=== PATIENT | male | born 1960 | race Caucasian/White ===

== ENCOUNTER 2016-11-26 10:39 | Inpatient (IN) | payer MEDICAID, OTHER | END 2016-11-27 14:36 | disposition left against medical advice (07) | DRG 848 | LOC: PREOBSVTOIN 13:22 → F1N 11-27 13:27 | PROVIDERS: ADMIT Internal Medicine Hematology & Oncology; ATTEND Internal Medicine Hematology & Oncology | DX: Z51.11 Encounter for antineoplastic chemotherapy (principal) ==

== ENCOUNTER 2016-11-27 14:49 | Inpatient (IN) | payer MEDICAID, OTHER ==
[2016-11-27] MEDS ORDERED: ONDANSETRON DISINTEGRATING 4 MG TAB PO PRN (18:24)
[2016-11-27] MEDS ORDERED: HYDROmorphONE/DILAUDID 1 MG/ML INJ IVP PRN (18:24)
[2016-11-27] MEDS ORDERED: ONDANSETRON 4 MG/2 ML VIAL IVP PRN (18:24)
[2016-11-27] MEDS ORDERED: ACETAMINOPHEN 325 MG TAB PO PRN (18:24)
[2016-11-27] MEDS ORDERED: VODKA 50 ML BOTTLE PO SCH (18:30)
--- NOTE | 2016-11-27 19:05 | PDGENHP ---
History and Physical - Chief Complaint here for chemo - History of Present Illness 56 yo male with h/o metastatic anal cancer presents to hospital for direct admission for chemotherapy. He initially noticed a right groin lump in 04/2016. At that time he was incarcerated. He ultimately underwent biopsy of this node , which showed squamous cell carcinoma possibly consistent with anal cancer origin. At PET/CT done at [facility] showed increased uptake along the right wall of the anus as well as the right inguinal lymph region. He is admitted for PICC line placement and initiation of chemotherapy. He denies CP, SOB, abdominal pain, N/V or diarrhea. No fevers or chills. He drinks a pint of whiskey a day , but denies any h/o withdrawal syndrome or seizures. He appears substance affected during my interview. He initially presented to the med surg unit earlier today, then left AMA for 3-4 hrs and just returned. He now agrees to stay for the duration of his chemo course. He is emotional regarding his diagnosis. History Information - Allergies/Home Medication List Allergies/Adverse Reactions: Penicillins Allergy (Intermediate, Verified 12/04/15 23:24) Rash Home Medications: Lidocaine 5% [Lidoderm 5% Patch (*)] 1 ea TD DAILY 09/15/14 [Last Taken 11/27/16 ] Terazosin HCl [Hytrin 2 MG (*)] 2 mg PO HS 09/15/14 [Last Taken 11/26/16] traMADol [Ultram 50 mg (*)] 50 - 100 mg PO Q8 PRN 09/15/14 [Last Taken Unknown] traZODone [traZODONE 100MG (*)] 200 mg PO HS 09/15/14 [Last Taken 11/26/16] Baclofen [Baclofen 10 mg (*)] 10 mg PO HS 11/27/16 [Last Taken 11/26/16] Fluticasone Nasal [Flonase Nasal [place] (RX)] 2 sprays NASAL DAILY 11/27/16 [ Last Taken 11/27/16] Gabapentin [Neurontin 400 MG (*)] 800 mg PO TID 11/27/16 [Last Taken 11/27/16] Ibuprofen [Motrin (*)] 600 mg PO TIDMEAL 11/27/16 [Last Taken 11/27/16] Losartan Potassium [Cozaar 50 mg (*)] 50 mg PO DAILY 10/23/17 [Last Taken ] Omeprazole [Prilosec 20 mg] 40 mg PO DAILY 11/27/16 [Last Taken 11/27/16] oxyCODONE IR [Oxycodone Ir (*)] 5 mg PO BID PRN 11/27/16 [Last Taken Unknown] I have personally reviewed and updated: family history, medical history, social history, surgical history - Past Medical History Additional medical history: alcohol abuse, tobacco abuse, hypertension, neuropathy, traumatic ICH 2008, insomnia - Surgical History Additional surgical history: right shoulder surgery 1985. metal plate right finger - Family History Positive for: non-pertinent - Social History Smoking Status: Current every day smoker Tobacco Use: Greater than 1 pack/day Alcohol Use: Heavy Additional social history: Homeless. Drinks pint of [employer] a day. Denies w/d or seizure hx. Review of Systems Review of Systems: ROS: 10pt was reviewed & negative except for what was stated in HPI & below Physical Exam Physical Exam: Temp Pulse Resp BP Pulse Ox 36.4 C 104 H 20 130/81 H 94 11/27/16 18:47 11/27/16 18:47 11/27/16 18:47 11/27/16 18:47 11/27/16 18:47 Constitutional: no apparent distress Eyes: PERRL Ears, Nose, Mouth, Throat: moist mucous membranes Cardiovascular: regular rate and rhythym, no murmur, rub, or gallop Respiratory: no respiratory distress, clear to auscultation Gastrointestinal: normoactive bowel sounds, soft, non-tender abdomen Genitourinary: other (right groin LAD with palpable node ~2x3 cm) Skin: warm Musculoskeletal: full muscle strength Psychiatric: poor judgement Lab Data & Imaging Review 11/27/16 20:30 11/27/16 20:30 Assessment & Plan Assessment: 56 yo male admitted for chemo Metastatic anal cancer - SCC on biopsy of right groin node, suspected source is anal thickening seen on PET/CT. Plan is admitted for chemo, followed by Dr. Louis at [facility]. Discussed with pt reluctance to place a PICC given he already left AMA once today. He agrees to stay for duration of chemo course, but I note he appears substance affected at this time. -defer PICC until tomorrow AM, need to consent pt to this when his mentation is more clear -chemo per oncology Alcohol use disorder - po vodka ordered to avoid withdrawal syndrome in this patient who does not intend to maintain sobriety. Tobacco use disorder - pt declined nicoderm patch Full code DVT PPLX - Lovenox Dispo - inpt, will require >48 hrs hospitalization for chemo
[2016-11-27 21:03] LABS: INR 1.02 (0.83-1.16); PROTIME(PATIENT) 13.3 SEC (12.0-15.0)
[2016-11-27 21:12] LABS: ALANINE AMINOTRANSFERASE 88 IU/L (21-72); ALBUMIN 4.2 g/dL (3.5-5.0); ALKALINE PHOSPHATASE 62 IU/L (38-126); ANION GAP 13 mEq/L (8-16); ASPARTATE AMINOTRANSFERASE 88 IU/L (17-59); BILIRUBIN,TOTAL 0.5 mg/dL (0.1-1.4); CALCIUM 8.7 mg/dL (8.5-10.4); CARBON DIOXIDE 26 mEq/l (22-31); CHLORIDE 102 mEq/L (97-110); CREATININE 0.9 mg/dL (0.7-1.3); ETHANOL SERUM 278 mg/dL (0-10); GLOMERULAR FILTRATION RATE > 60; GLUCOSE 106 mg/dL (70-100); POTASSIUM 3.3 mEq/L (3.5-5.2); SODIUM 141 mEq/L (134-144); TOTAL PROTEIN 7.1 g/dL (6.3-8.2)
[2016-11-27] MEDS ORDERED: POTASSIUM CL 20 MEQ TAB PO ONE (23:28)
[2016-11-28 01:29] LABS: TETRAHYDROCANNABINOL URINE 8 ng/mL (NEGATIVE); TETRAHYDROCANNABINOL URINE NEGATIVE (NEGATIVE)
[2016-11-28 01:44] LABS: PHENCYCLIDINE URINE BCH < 6 ng/ml (NEGATIVE); PHENCYCLIDINE URINE BCH NEGATIVE (NEGATIVE)
[2016-11-28] MEDS ORDERED: POTASSIUM CL 20 MEQ TAB PO ONE (03:15)
[2016-11-28 05:09] LABS: % IMMATURE GRANULYOCYTES 0.2 % (0.0-1.1); ABSOLUTE IMMATURE GRANULOCYTES 0.01 10^3/uL (0.00-0.10); ADD DIFF? NO; ADD MORPH? NO; ADD SCAN? NO; ATYPICAL LYMPHOCYTE FLAG 30 (0-99); FRAGMENT RBC FLAG 0 (0-99); HEMATOCRIT 40.5 % (40.0-51.0); HEMOGLOBIN 14.4 g/dL (13.7-17.5); LEFT SHIFT FLG 0 (0-99); LIPEMIA HEMOLYSIS FLAG 90 (0-99); MEAN CELL HEMOGLOBIN 35.5 pg (27.9-34.1); MEAN CELL HEMOGLOBIN CONCENTR. 35.6 g/dL (32.4-36.7); MEAN CELL VOLUME 99.8 fL (81.5-99.8); MEAN PLATELET VOLUME 9.6 fL (8.7-11.7); PLATELET CLUMPS FLAG 20 (0-99); PLATELET COUNT 128 10^3/uL (150-400); RED BLOOD CELL COUNT 4.06 10^6/uL (4.40-6.38); RED CELL DISTRIBUTION WIDTH 13.2 % (11.5-15.2)
[2016-11-28] MEDS ORDERED: ALTEPLASE 2 MG VIAL IVP PRN (08:25)
[2016-11-28] MEDS: FLUTICASONE NASAL 120 SPRAYS/16 GM MDI NS SCH (08:32)
--- NOTE | 2016-11-28 08:35 | HOSPPROG ---
Hospitalist Progress Note Assessment/Plan: # anal SCC - plan mitomycin, then 4 days of 5-FU - XRT daily - patient very resistant to taking an ambulance; I called risk management - PICC today # etOH abuse - vodka daily, no plans for cessation - thiamine # tobacco use - declined nicotine patch # htn - losartan, terazosin # neuropathy - gabapentin # chronic pain - baclofen, oxy # hx traumatic ICH 2009 # lovenox Subjective: very resistant to taking an ambulance to radiation; sleeping, complains of awakening in the middle of the night Objective: Vital Signs Temp Pulse Resp BP Pulse Ox 36.8 C 92 16 131/84 H 95 11/27/16 20:00 11/27/16 20:00 11/27/16 20:00 11/27/16 20:00 11/27/16 20:00 Laboratory Results 11/28/16 04:45 11/27/16 20:30 11/27/16 11/28/16 11/29/16 05:59 05:59 05:59 Intake Total 400 Output Total 400 Balance 0 PT 13.3 SEC (12.0-15.0) 11/27/16 20:30 INR 1.02 (0.83-1.16) 11/27/16 20:[address] reviewed - Physical Exam Constitutional: unkempt Cardiovascular: regular rate and rhythym, no murmur, rub, or gallop Respiratory: no respiratory distress, no rales or rhonchi, clear to auscultation Gastrointestinal: normoactive bowel sounds, soft, non-tender abdomen, no palpable masses ICD10 Worksheet Patient Problems: Problems Problem Status Onset Cellulitis and abscess Acute
[2016-11-28] MEDS ORDERED: GABAPENTIN 400 MG CAP PO SCH (09:00)
[2016-11-28] MEDS ORDERED: LIDOCAINE 5% 1 EA PATCH TD SCH (09:00)
[2016-11-28] MEDS ORDERED: LOSARTAN POTASSIUM 50 MG TAB PO SCH (09:00)
[2016-11-28] MEDS ORDERED: ENOXAPARIN 40 MG/0.4 ML SYR SC SCH (09:00)
[2016-11-28] MEDS ORDERED: PANTOPRAZOLE SODIUM 40 MG TAB PO SCH (09:00)
[2016-11-28] MEDS: oxyCODONE IR 5 MG TAB PO PRN (09:36)
[2016-11-28] MEDS: THIAMINE HCL 100 MG TAB PO SCH (09:36)
[2016-11-28] MEDS: traMADol 50 MG TAB PO PRN ×2 (09:38→18:02)
[2016-11-28] MEDS: BACLOFEN 10 MG TAB PO PRN (09:39)
--- NOTE | 2016-11-28 10:08 | ASMTCMCOM ---
CM Note CM Note Notes: Patient twice admitted yesterday after deciding to leave shortly after admission. Patient here for chemo and radiation for rectal cancer. Patient to get PICC today. Left message for Qiana Saavedra to see patient to establish a base line of behavior or necessary boundaries. Patient is refusing nicotine patch and also states he plans to continue drinking. Case management will continue to follow. Date Signed: 11/28/2016 10:07 AM Electronically Signed By:NITZA Pedersen
[2016-11-28] MEDS: GABAPENTIN 400 MG CAP PO SCH ×2 (12:00→21:09)
[2016-11-28] MEDS: LOSARTAN POTASSIUM 50 MG TAB PO SCH (12:02)
[2016-11-28] MEDS ORDERED: LORazepam 1 MG TAB PO PRN (14:50)
[2016-11-28] MEDS ORDERED: NICOTINE 21 MG/24 HR PATCH TD PRN (14:50)
--- NOTE | 2016-11-28 15:27 | GCON ---
[f rep st] CONSULTATION ONCOLOGY CONSULTATION DATE OF CONSULTATION: 11/28/2016 REASON FOR CONSULTATION: Anal squamous cell carcinoma. HISTORY OF PRESENT ILLNESS: The patient is a 56-year-old gentleman who is followed by my partner, Dr Sam Louis. The patient reports noting a "lump" in his right groin in August of this year. The patient is homeless and was briefly incarcerated and, thus, had significant barriers to receiving [facility] and treatment. He was eventually evaluated. A biopsy revealed anal squamous cell carcinom a. A subsequent endoscopy confirmed squamous cell carcinoma in the anal canal. A PET scan showed no evidence of metastatic disease. The patient has been admitted for his first cycle of mitomycin 5-FU , which is being given concurrently with external beam radiation therapy. He received his first radi ation treatment yesterday. He denies any anorectal pain. He denies chest pain, cough, or exertional dyspnea. He denies abdomin al pain or bloating. His medical history is notable for alcohol abuse. He is admitted to begin chemotherapy. He is sched uled to have a PICC line placed later today and hopefully to begin his mitomycin 5-FU this evening. PAST MEDICAL HISTORY: 1. Alcohol abuse. 2. Hypertension. 3. Peripheral neuropathy. 4. Traumatic intracerebral hemorrhage, 2008. 5. Chronic insomnia. PAST SURGICAL HISTORY: Right shoulder surgery, 1985. FAMILY HISTORY: The patient reports his older brother recently of metastatic prostate cancer. He has a brother who had a possible head and neck cancer. A sister had early stage uterine cancer. SOCIAL HISTORY: The patient is homeless. He resides in [facility]. He is not working. He drin ks approximately 1 pint of [place] whiskey a day. He smokes 12-13 cigarettes daily. He has family living in [place], [place] (siblings). REVIEW OF SYSTEMS: As outlined above. PHYSICAL EXAM: GENERAL: The patient is in no acute distress. HEENT: Pupils equal. Sclerae are no nicteric. Conjunctivae normal. No palpable submandibular, cervical, or supraclavicular adenopathy. HEART: Regular, without murmur. LUNGS: Clear bilaterally. No wheeze, no rhonchi. No crackles. No flank tenderness. ABDOMEN: Soft, nontender, nondistended. There is no hepatomegaly. LYMPHATIC: The patient does have a palpable 2-3 cm mobile node in the right inguinal region. No palpable left inguinal adenopathy. EXTREMITIES: No extremity swelling or edema. LABORATORY STUDIES: White count of 4.05, hemoglobin 14.4, platelet count 128,000. Absolute neutrophi l count is 1200. Sodium 141, potassium 3.3, chloride 102, bicarb 26, BUN 8, creatinine 0.8, total bi lirubin 0.5, AST 88, ALT 88, alkaline phosphatase 62, albumin 4.2. IMPRESSION: 1. Locally advanced anal squamous cell carcinoma (patient being admitted for his first cycle of zaina mycin 5-FU therapy). 2. Alcohol abuse. 3. Mild transaminitis, likely secondary to #2. The patient is a 56-year-old gentleman who is electively admitted for his first cycle of mitomycin 5- FU. He is scheduled to have a PICC line placed later today and will hopefully begin his mitomycin 5- FU this evening. I again reviewed the regimen. We discussed the intent of treatment. The patient h as a potentially curable malignancy. The side effect profile of mitomycin 5-FU was again reviewed wi th the patient, including the risk of neutropenic infection and chemotherapy-induced mucositis, nause a, vomiting, and diarrhea. He is willing to proceed with therapy. He will remain inpatient for at least 4 days to receive his treatment. The 5-FU will be given by con tinuous infusion. His LFTs will be monitored closely. I suspect the mild elevation is due to his ongoing alcohol abuse . He does not require a chemotherapy dose adjustment based on his liver function tests currently. Case Management is involved. His living situation presents a problem given that he is receiving last ow suppressive chemotherapy. Case Management is meeting with him to attempt to find a temporary hous ing situation for the patient. Our service will continue to follow him during his hospital stay. He will continue to receive daily radiation therapy. His questions were answered today. Total time for today's visit was approximately 45 minutes, of which greater than 50% was spent in cou nseling and care coordination. His case was discussed with 1 [facility] nursing staff. /[id number]/MODL
[2016-11-28] MEDS ORDERED: PALONOSETRON HCL 0.25 MG/5 ML VIAL IVP SCH (16:00)
[2016-11-28] MEDS ORDERED: DEXAMETHASONE SOD PHOSPHATE 10 MG in NS 50 ML IV SCH (16:00)
[2016-11-28] MEDS ORDERED: MITOMYCIN IV SCH (16:30)
[2016-11-28] MEDS ORDERED: FLUOROURACIL IV SCH (17:00)
[2016-11-28] MEDS ORDERED: D5W IV SCH (17:00)
[2016-11-28] MEDS: VODKA 50 ML BOTTLE PO SCH (18:04)
--- NOTE | 2016-11-28 18:05 | ASMTCMCOM ---
CM Note CM Note Notes: Requested that Merari Singh meet with patient because he was very concerned that he would not receive assistance with housing after his treatment though he had been told that this would be arranged. Merari spent a considerable amount to time with patient and patient appeared to trust her with some very personal information. He also referred to important people in his life Dora , his sister [phone], Brother Matthew [phone], and friend Joaquin [phone]. He also told Merari he woul be willing to get a nicotin patch while he is here and said he would take the vodka if it is in cranberry juice. Merari plans to continue to touch base with this patient and address needs not anticipated as they arise. Case management will continue to follow. Date Signed: 11/28/2016 06:04 PM Electronically Signed By:NITZA Pedersen
[2016-11-28] MEDS: traZODone 100 MG TAB PO SCH (21:08)
[2016-11-28] MEDS: LIDOCAINE 5% 1 EA PATCH TD SCH (21:08)
[2016-11-28] MEDS: PANTOPRAZOLE SODIUM 40 MG TAB PO SCH (21:08)
[2016-11-28] MEDS: TERAZOSIN HCL 2 MG CAP PO SCH (21:08)
[2016-11-28] MEDS: BACLOFEN 10 MG TAB PO SCH (21:09)
[2016-11-28] MEDS: PATCH REMOVAL 1 EA PATCH TD SCH (21:24)
[2016-11-29] MEDS: traMADol 50 MG TAB PO PRN ×2 (05:50→14:22)
[2016-11-29] MEDS: GABAPENTIN 400 MG CAP PO SCH ×3 (05:50→21:08)
[2016-11-29] MEDS: BACLOFEN 10 MG TAB PO PRN (05:52)
[2016-11-29] MEDS: VODKA 50 ML BOTTLE PO SCH (08:48)
[2016-11-29] MEDS: THIAMINE HCL 100 MG TAB PO SCH (08:48)
[2016-11-29] MEDS: oxyCODONE IR 5 MG TAB PO PRN (08:48)
[2016-11-29] MEDS: ENOXAPARIN 40 MG/0.4 ML SYR SC SCH (08:52)
--- NOTE | 2016-11-29 10:08 | HOSPPROG ---
Hospitalist Progress Note Assessment/Plan: # anal SCC - plan mitomycin, then 4 days of 5-FU - likely complete Sunday am - XRT daily - ok'd for him to take wheelchair - PICC today # etOH abuse - no evidence of w/d - vodka daily, no plans for cessation - ativan prn - thiamine # tobacco use - nicotine prn # htn - losartan, terazosin, start low dose norvasc # neuropathy - gabapentin # chronic pain - baclofen, oxy # hx traumatic ICH 2009 # lovenox Subjective: s/p PICC and XRT yesterday Objective: Vital Signs Temp Pulse Resp BP Pulse Ox 36.4 C 91 20 166/105 H 93 11/29/16 09:35 11/29/16 09:35 11/29/16 09:35 11/29/16 09:35 11/29/16 09:35 Laboratory Results 11/28/16 04:45 11/27/16 20:30 11/28/16 11/29/16 11/30/16 05:59 05:59 05:59 Intake Total 400 200 Output Total 400 Balance 0 200 PT 13.3 SEC (12.0-15.0) 11/27/16 20:30 INR 1.02 (0.83-1.16) 11/27/16 20:30 - Physical Exam Constitutional: no apparent distress, appears nourished Cardiovascular: regular rate and rhythym, no murmur, rub, or gallop, systolic murmur Respiratory: no respiratory distress, no rales or rhonchi, clear to auscultation Gastrointestinal: normoactive bowel sounds, soft, non-tender abdomen, no palpable masses ICD10 Worksheet Patient Problems: Problems Problem Status Onset Cellulitis and abscess Acute
[2016-11-29] MEDS: FLUTICASONE NASAL 120 SPRAYS/16 GM MDI NS SCH (10:17)
[2016-11-29] MEDS: PATCH REMOVAL 1 EA PATCH TD SCH (10:18)
[2016-11-29] MEDS: LOSARTAN POTASSIUM 50 MG TAB PO SCH (12:02)
--- NOTE | 2016-11-29 14:24 | SOAPPROG ---
SOAP Progress Note Assessment/Plan: Assessment: 1) Stage IIIB anal canal SCC 2) Alcohol abuse 3) Mild transaminitis Plan: Yinka had a PICC line placed yesterday. He is has started Mitomycin / 5-FU yesterday. So far he has had no side effects. He continues on daily XRT. Will repeat a CMP in am tomorrow. Case management arranging housing once he is discharged. His questions were answered. 11/29/16 14:21 Subjective: Feels well. Denies N/V. Denies diarrhea or mouth sores. Objective: Vital Signs Temp Pulse Resp BP Pulse Ox 36.4 C 107 H 14 136/104 H 93 11/29/16 09:35 11/29/16 12:01 11/29/16 12:01 11/29/16 12:01 11/29/16 12:01 Laboratory Results 11/28/16 04:45 11/27/16 20:30 11/28/16 11/29/16 11/30/16 05:59 05:59 05:59 Intake Total 400 200 Output Total 400 Balance 0 200 PT 13.3 SEC (12.0-15.0) 11/27/16 20:30 INR 1.02 (0.83-1.16) 11/27/16 20:30 - Time Spent With Patient Time Spent With Patient: 20 minutes Physical Exam - Physical Exam General Appearance: alert, no apparent distress EENT: PERRL/EOMI Skin: normal color Neuro/Psych: normal mood/affect ICD10 Worksheet Patient Problems: Problems Problem Status Onset Cellulitis and abscess Acute
--- NOTE | 2016-11-29 17:03 | ASMTCMCOM ---
CM Note CM Note Notes: ULTC-100 started, at front of chart. CM will finish in AM. Paty notified for LT M'Caid tylor to be atarted as pt may need SNF placement at [facility]. Date Signed: 11/29/2016 05:02 PM Electronically Signed By:Mary Ann Ortez RN
[2016-11-29] MEDS: PANTOPRAZOLE SODIUM 40 MG TAB PO SCH (21:07)
[2016-11-29] MEDS: LIDOCAINE 5% 1 EA PATCH TD SCH (21:07)
[2016-11-29] MEDS: TERAZOSIN HCL 2 MG CAP PO SCH (22:37)
[2016-11-29] MEDS: traZODone 100 MG TAB PO SCH (22:37)
[2016-11-29] MEDS: BACLOFEN 10 MG TAB PO SCH (22:37)
[2016-11-30] MEDS: FLUOROURACIL IV SCH
[2016-11-30] MEDS: D5W IV SCH
[2016-11-30] MEDS: traMADol 50 MG TAB PO PRN ×4 (00:21→21:32)
[2016-11-30] MEDS: GABAPENTIN 400 MG CAP PO SCH ×3 (05:37→21:31)
[2016-11-30] MEDS: VODKA 50 ML BOTTLE PO SCH (07:48)
[2016-11-30] MEDS: ENOXAPARIN 40 MG/0.4 ML SYR SC SCH (07:48)
[2016-11-30] MEDS: THIAMINE HCL 100 MG TAB PO SCH (07:48)
[2016-11-30] MEDS: FLUTICASONE NASAL 120 SPRAYS/16 GM MDI NS SCH (07:50)
[2016-11-30] MEDS: PATCH REMOVAL 1 EA PATCH TD SCH (07:53)
--- NOTE | 2016-11-30 08:51 | SOAPPROG ---
SOAP Progress Note Assessment/Plan: Assessment: 1) Stage IIIB anal canal SCC 2) Alcohol abuse 3) Mild transaminitis Plan: Yinka had a PICC line. He is has started Mitomycin / 5-FU on 11/28. So far he has had no side effects. He continues on daily XRT. Will repeat a CMP today when his 5-FU is stopped for him to go to XRT. No signs of ETOH withdrawal. He receives vodka as he is not interested in sobriety. Case management arranging housing once he is discharged. His questions were answered. 11/29/16 14:21 11/30/16 08:48 11/30/16 08:49 Subjective: Receiving chemotherapy and daily XRT. Denies nausea or diarrhea Objective: Vital Signs Temp Pulse Resp BP Pulse Ox 36.4 C 79 16 152/107 H 95 11/30/16 07:26 11/30/16 07:26 11/30/16 07:26 11/30/16 07:47 11/30/16 07:26 Laboratory Results 11/28/16 04:45 11/27/16 20:30 11/29/16 11/30/16 12/01/16 05:59 05:59 05:59 Intake Total 200 1832.90 Balance 200 1832.90 PT 13.3 SEC (12.0-15.0) 11/27/16 20:30 INR 1.02 (0.83-1.16) 11/27/16 20:30 - Time Spent With Patient Time Spent With Patient: 20 minutes Physical Exam - Physical Exam General Appearance: alert, no apparent distress EENT: PERRL/EOMI Respiratory: lungs clear Cardiac/Chest: regular rate, rhythm Abdomen: non-tender, soft Skin: normal color Neuro/Psych: alert ICD10 Worksheet Patient Problems: Problems Problem Status Onset Cellulitis and abscess Acute
[2016-11-30 09:59] LABS: % IMMATURE GRANULYOCYTES 0.2 % (0.0-1.1); ABSOLUTE IMMATURE GRANULOCYTES 0.01 10^3/uL (0.00-0.10); ADD DIFF? NO; ADD MORPH? NO; ADD SCAN? NO; ATYPICAL LYMPHOCYTE FLAG 0 (0-99); FRAGMENT RBC FLAG 0 (0-99); HEMATOCRIT 41.3 % (40.0-51.0); HEMOGLOBIN 14.6 g/dL (13.7-17.5); LEFT SHIFT FLG 0 (0-99); LIPEMIA HEMOLYSIS FLAG 90 (0-99); MEAN CELL HEMOGLOBIN 36.1 pg (27.9-34.1); MEAN CELL HEMOGLOBIN CONCENTR. 35.4 g/dL (32.4-36.7); MEAN CELL VOLUME 102.2 fL (81.5-99.8); MEAN PLATELET VOLUME 9.7 fL (8.7-11.7); PLATELET CLUMPS FLAG 10 (0-99); PLATELET COUNT 124 10^3/uL (150-400); RED BLOOD CELL COUNT 4.04 10^6/uL (4.40-6.38); RED CELL DISTRIBUTION WIDTH 12.8 % (11.5-15.2)
[2016-11-30 10:07] LABS: ALANINE AMINOTRANSFERASE 63 IU/L (21-72); ALBUMIN 3.9 g/dL (3.5-5.0); ALKALINE PHOSPHATASE 56 IU/L (38-126); ANION GAP 11 mEq/L (8-16); ASPARTATE AMINOTRANSFERASE 51 IU/L (17-59); BILIRUBIN,TOTAL 1.3 mg/dL (0.1-1.4); CALCIUM 9.1 mg/dL (8.5-10.4); CARBON DIOXIDE 29 mEq/l (22-31); CHLORIDE 101 mEq/L (97-110); CREATININE 0.8 mg/dL (0.7-1.3); GLOMERULAR FILTRATION RATE > 60; GLUCOSE 81 mg/dL (70-100); SODIUM 141 mEq/L (134-144); TOTAL PROTEIN 7.3 g/dL (6.3-8.2)
--- NOTE | 2016-11-30 12:02 | HOSPPROG ---
Hospitalist Progress Note Assessment/Plan: # anal SCC, admitted for chemo - plan mitomycin, then 4 days of 5-FU - likely complete Sunday am - XRT daily - ok'd for him to take wheelchair - PICC today # etOH abuse - no evidence of w/d - vodka daily, no plans for cessation - ativan prn - thiamine # behavioral issues - very resistant to following hospital protocols; makes his treatment difficult; had initially signed out AMA, then returned intoxicated # tobacco use - nicotine prn # htn - losartan, terazosin, start low dose norvasc # neuropathy - gabapentin # chronic pain - baclofen, oxy # hx traumatic ICH 2009 # lovenox Subjective: still resistant to following rules such as staying on the unit while he is getting chemo Objective: Vital Signs Temp Pulse Resp BP Pulse Ox 36.4 C 79 16 152/107 H 95 11/30/16 07:26 11/30/16 07:26 11/30/16 07:26 11/30/16 07:47 11/30/16 07:26 Laboratory Results 11/30/16 09:20 11/30/16 09:20 11/29/16 11/30/16 12/01/16 05:59 05:59 05:59 Intake Total 200 1832.90 Balance 200 1832.90 PT 13.3 SEC (12.0-15.0) 11/27/16 20:30 INR 1.02 (0.83-1.16) 11/27/16 20:30 - Time Spent With Patient Time Spent with Patient: greater than 25 minutes Time Spent with Patient: Greater than 25 minutes spent on this patients care, greater than 50% of time spent counseling, educating, and coordinating care regarding the above mentioned plan. - Physical Exam Constitutional: no apparent distress, appears nourished ICD10 Worksheet Patient Problems: Problems Problem Status Onset Cellulitis and abscess Acute
[2016-11-30] MEDS: LOSARTAN POTASSIUM 50 MG TAB PO SCH (12:27)
[2016-11-30] MEDS: BACLOFEN 10 MG TAB PO PRN (14:00)
--- NOTE | 2016-11-30 17:09 | ASMTCMCOM ---
CM Note CM Note Notes: Pt currently does not meet criteria for a LTC bed at a nursing facility. Dir James of case mgmt. approved pt staying at the [facility] for two weeks. This plan will be revisited near the end of those two weeks. Reservation for [facility] from 12/03 12/17. Reservation # is [phone]. Pt will also need W/C transport through [facility] set up. This will be covered by Medicaid. [employer] will be contacted tomorrow. Discussed plans with pt who is grateful. Went over rule about no smoking in room with pt. Discussed rule about limiting visitors and taking good care of the room but pt indicated he has no friends so doesnt think it will be an issue. Pt is due to complete his chemo on Sunday so DC tentatively planned for then. Date Signed: 11/30/2016 05:09 PM Electronically Signed By:Elena Marinelli LCSW
[2016-11-30] MEDS: LIDOCAINE 5% 1 EA PATCH TD SCH (21:31)
[2016-11-30] MEDS: TERAZOSIN HCL 2 MG CAP PO SCH (21:33)
[2016-11-30] MEDS: PANTOPRAZOLE SODIUM 40 MG TAB PO SCH (21:34)
[2016-11-30] MEDS: traZODone 100 MG TAB PO SCH (21:34)
[2016-11-30] MEDS: BACLOFEN 10 MG TAB PO SCH (21:35)
[2016-12-01] MEDS: FLUOROURACIL IV SCH (02:46)
[2016-12-01] MEDS: D5W IV SCH (02:46)
[2016-12-01 03:16] LABS: % IMMATURE GRANULYOCYTES 0.2 % (0.0-1.1); ABSOLUTE IMMATURE GRANULOCYTES 0.01 10^3/uL (0.00-0.10); ADD DIFF? NO; ADD MORPH? NO; ADD SCAN? NO; ATYPICAL LYMPHOCYTE FLAG 0 (0-99); FRAGMENT RBC FLAG 0 (0-99); HEMATOCRIT 39.9 % (40.0-51.0); HEMOGLOBIN 14.4 g/dL (13.7-17.5); LEFT SHIFT FLG 0 (0-99); LIPEMIA HEMOLYSIS FLAG 90 (0-99); MEAN CELL HEMOGLOBIN 36.9 pg (27.9-34.1); MEAN CELL HEMOGLOBIN CONCENTR. 36.1 g/dL (32.4-36.7); MEAN CELL VOLUME 102.3 fL (81.5-99.8); MEAN PLATELET VOLUME 9.2 fL (8.7-11.7); PLATELET CLUMPS FLAG 0 (0-99); PLATELET COUNT 122 10^3/uL (150-400); RED CELL DISTRIBUTION WIDTH 12.9 % (11.5-15.2)
[2016-12-01 03:24] LABS: ALANINE AMINOTRANSFERASE 58 IU/L (21-72); ALKALINE PHOSPHATASE 55 IU/L (38-126); ANION GAP 13 mEq/L (8-16); ASPARTATE AMINOTRANSFERASE 50 IU/L (17-59); BILIRUBIN,TOTAL 1.3 mg/dL (0.1-1.4); CARBON DIOXIDE 26 mEq/l (22-31); CHLORIDE 100 mEq/L (97-110); CREATININE 0.8 mg/dL (0.7-1.3); GLOMERULAR FILTRATION RATE > 60; GLUCOSE 99 mg/dL (70-100); POTASSIUM 3.6 mEq/L (3.5-5.2); SODIUM 139 mEq/L (134-144); TOTAL PROTEIN 6.8 g/dL (6.3-8.2)
[2016-12-01] MEDS: traMADol 50 MG TAB PO PRN ×3 (05:05→22:06)
[2016-12-01] MEDS: GABAPENTIN 400 MG CAP PO SCH ×3 (05:06→21:17)
[2016-12-01] MEDS: oxyCODONE IR 5 MG TAB PO PRN ×4 (05:08→19:23)
[2016-12-01] MEDS: VODKA 50 ML BOTTLE PO SCH (08:57)
[2016-12-01] MEDS: ENOXAPARIN 40 MG/0.4 ML SYR SC SCH (08:57)
[2016-12-01] MEDS: THIAMINE HCL 100 MG TAB PO SCH (08:57)
[2016-12-01] MEDS: BACLOFEN 10 MG TAB PO PRN (08:58)
[2016-12-01] MEDS: PATCH REMOVAL 1 EA PATCH TD SCH (09:01)
[2016-12-01] MEDS: FLUTICASONE NASAL 120 SPRAYS/16 GM MDI NS SCH (09:01)
[2016-12-01] MEDS: LOSARTAN POTASSIUM 50 MG TAB PO SCH (11:57)
--- NOTE | 2016-12-01 12:35 | HOSPPROG ---
Hospitalist Progress Note Assessment/Plan: # anal SCC, admitted for chemo - plan mitomycin, then 4 days of 5-FU - likely complete Sunday am; could be discharged after - XRT daily - ok'd for him to take wheelchair - PICC - would remove on discharge # etOH abuse - no evidence of w/d - vodka daily, no plans for cessation - ativan prn - thiamine # behavioral issues - very resistant to following hospital protocols; makes his treatment difficult; had initially signed out AMA, then returned intoxicated - appreciate Qiana Saavedra's note # tobacco use - nicotine prn # htn - losartan, terazosin, start low dose norvasc with elevated BPs here # neuropathy - gabapentin # chronic pain - baclofen, oxy # hx traumatic ICH 2009 # lovenox Subjective: feels that the BP cufs are incorrect Objective: Vital Signs Temp Pulse Resp BP Pulse Ox 36.6 C 108 H 19 142/82 H 93 12/01/16 08:41 12/01/16 08:41 12/01/16 08:41 12/01/16 11:57 12/01/16 08:41 Laboratory Results 12/01/16 03:09 12/01/16 03:09 11/30/16 12/01/16 12/02/16 05:59 05:59 05:59 Intake Total 1832.90 1791 Balance 1832.90 1791 PT 13.3 SEC (12.0-15.0) 11/27/16 20:30 INR 1.02 (0.83-1.16) 11/27/16 20:30 - Time Spent With Patient Time Spent with Patient: greater than 25 minutes Time Spent with Patient: Greater than 25 minutes spent on this patients care, greater than 50% of time spent counseling, educating, and coordinating care regarding the above mentioned plan. - Physical Exam Constitutional: no apparent distress, appears nourished ICD10 Worksheet Patient Problems: Problems Problem Status Onset Cellulitis and abscess Acute
--- NOTE | 2016-12-01 14:39 | SOAPPROG ---
SOAP Progress Note Assessment/Plan: Assessment: 1) Stage IIIB anal canal SCC 2) Alcohol abuse 3) Mild transaminitis--resolved Plan: Yinka had a PICC line. He started Mitomycin / 5-FU on 11/28 in the evening. So far he has had no side effects. He will complete his therapy early Sunday morning. He continues on daily XRT. His repeat CMP is normal with no evidence of transaminitis. No signs of ETOH withdrawal. He receives vodka as he is not interested in sobriety. Case management arranging housing once he is discharged. His questions were answered. 12/01/16 14:39 Subjective: Overall feels well. Denies nausea / vomiting / diarrhea / Skin rash. Objective: Vital Signs Temp Pulse Resp BP Pulse Ox 36.6 C 108 H 19 142/82 H 93 12/01/16 08:41 12/01/16 08:41 12/01/16 08:41 12/01/16 11:57 12/01/16 08:41 Laboratory Results 12/01/16 03:09 12/01/16 03:09 11/30/16 12/01/16 12/02/16 05:59 05:59 05:59 Intake Total 1832.90 1791 Balance 1832.90 1791 PT 13.3 SEC (12.0-15.0) 11/27/16 20:30 INR 1.02 (0.83-1.16) 11/27/16 20:30 - Time Spent With Patient Time Spent With Patient: 20 minutes Physical Exam - Physical Exam General Appearance: alert, no apparent distress EENT: PERRL/EOMI Abdomen: soft Skin: normal color Neuro/Psych: alert ICD10 Worksheet Patient Problems: Problems Problem Status Onset Cellulitis and abscess Acute
--- NOTE | 2016-12-01 15:27 | ASMTCMCOM ---
CM Note CM Note Notes: Contacted [facility] today and they contacted [employer] for pt. MOW will start on Tuesday 12/05 so [facility] will drop off food supplies at the [facility] for pt . Pt signed the respite care agreement which was faxed to [facility] and placed in pt's chart. Transportation for pt's appts at [facility] made through [employer] starting 12/04 through 12/15. Maya Bello will continue transportation arrangements after that. C/M will continue to follow. Date Signed: 12/01/2016 03:27 PM Electronically Signed By:Elena Marinelli LCSW
[2016-12-01] MEDS: traZODone 100 MG TAB PO SCH (21:16)
[2016-12-01] MEDS: BACLOFEN 10 MG TAB PO SCH (21:17)
[2016-12-01] MEDS: TERAZOSIN HCL 2 MG CAP PO SCH (21:17)
[2016-12-01] MEDS: PANTOPRAZOLE SODIUM 40 MG TAB PO SCH (21:18)
[2016-12-01] MEDS: LIDOCAINE 5% 1 EA PATCH TD SCH (21:18)
[2016-12-02] MEDS: FLUOROURACIL IV SCH (04:31)
[2016-12-02] MEDS: D5W IV SCH (04:31)
[2016-12-02 04:46] LABS: % IMMATURE GRANULYOCYTES 0.3 % (0.0-1.1); ABSOLUTE IMMATURE GRANULOCYTES 0.01 10^3/uL (0.00-0.10); ADD DIFF? NO; ADD MORPH? NO; ADD SCAN? NO; ATYPICAL LYMPHOCYTE FLAG 0 (0-99); FRAGMENT RBC FLAG 0 (0-99); HEMATOCRIT 39.9 % (40.0-51.0); HEMOGLOBIN 14.5 g/dL (13.7-17.5); LEFT SHIFT FLG 0 (0-99); LIPEMIA HEMOLYSIS FLAG 90 (0-99); MEAN CELL HEMOGLOBIN 37.2 pg (27.9-34.1); MEAN CELL HEMOGLOBIN CONCENTR. 36.3 g/dL (32.4-36.7); MEAN CELL VOLUME 102.3 fL (81.5-99.8); MEAN PLATELET VOLUME 9.3 fL (8.7-11.7); PLATELET CLUMPS FLAG 10 (0-99); PLATELET COUNT 114 10^3/uL (150-400); RED CELL DISTRIBUTION WIDTH 12.6 % (11.5-15.2)
[2016-12-02] MEDS: BACLOFEN 10 MG TAB PO PRN ×2 (04:56→14:21)
[2016-12-02 05:00] LABS: ALANINE AMINOTRANSFERASE 59 IU/L (21-72); ALBUMIN 3.8 g/dL (3.5-5.0); ALKALINE PHOSPHATASE 51 IU/L (38-126); ANION GAP 12 mEq/L (8-16); ASPARTATE AMINOTRANSFERASE 43 IU/L (17-59); BILIRUBIN,TOTAL 1.5 mg/dL (0.1-1.4); CALCIUM 9.2 mg/dL (8.5-10.4); CARBON DIOXIDE 29 mEq/l (22-31); CHLORIDE 101 mEq/L (97-110); CREATININE 0.8 mg/dL (0.7-1.3); GLOMERULAR FILTRATION RATE > 60; GLUCOSE 97 mg/dL (70-100); POTASSIUM 3.6 mEq/L (3.5-5.2); SODIUM 142 mEq/L (134-144); TOTAL PROTEIN 7.1 g/dL (6.3-8.2)
[2016-12-02] MEDS: GABAPENTIN 400 MG CAP PO SCH ×3 (05:50→21:09)
[2016-12-02] MEDS: traMADol 50 MG TAB PO PRN ×3 (05:50→22:07)
[2016-12-02] MEDS: THIAMINE HCL 100 MG TAB PO SCH (09:15)
[2016-12-02] MEDS: ENOXAPARIN 40 MG/0.4 ML SYR SC SCH (09:15)
[2016-12-02] MEDS: VODKA 50 ML BOTTLE PO SCH (09:16)
[2016-12-02] MEDS: FLUTICASONE NASAL 120 SPRAYS/16 GM MDI NS SCH (09:16)
[2016-12-02] MEDS: PATCH REMOVAL 1 EA PATCH TD SCH (09:19)
[2016-12-02] MEDS: oxyCODONE IR 5 MG TAB PO PRN ×2 (09:21→21:09)
--- NOTE | 2016-12-02 12:02 | SOAPPROG ---
SOAP Progress Note Assessment/Plan: Assessment/Plan: 56 yo man w stage IIIB anal canal SCC admitted for 5FU/mitomycin 1. Stage IIIB anal SCC - so far tolerating chemoXRT well although very early in treatment will be discharged Sunday to hotel and readmited for C2 5FU/mitpomycin in a few weeks Cont daily XRT 2. Etoh abuse - no signs of withdrawl receiving vodka scheduled 3. Transaminitis - resolved but TBili up will follow 4. Dispo - pt is homeless will go to a hotel on d/c needs f/u w Dr Louis next week 12/02/16 11:59 Subjective: No acute events reports some loose stools this am reports mild itching of anus Objective: Vital Signs Temp Pulse Resp BP Pulse Ox 36.6 C 107 H 16 136/86 H 94 12/02/16 08:00 12/02/16 08:00 12/02/16 08:00 12/02/16 08:00 12/02/16 08:00 Laboratory Results 12/02/16 04:30 12/02/16 04:30 12/01/16 12/02/16 12/03/16 05:59 05:59 05:59 Intake Total 1791 3001 Output Total 4 Balance 1791 2997 PT 13.3 SEC (12.0-15.0) 11/27/16 20:30 INR 1.02 (0.83-1.16) 11/27/16 20:30 Vitals reviewed Gen - NAD HEENT - anicteric CV - RRR Chest - CTAB Abd - soft, NT, BS+ Ext - no edema ICD10 Worksheet Patient Problems: Problems Problem Status Onset Cellulitis and abscess Acute
[2016-12-02] MEDS: LOSARTAN POTASSIUM 50 MG TAB PO SCH (12:38)
--- NOTE | 2016-12-02 14:28 | HOSPPROG ---
Hospitalist Progress Note Assessment/Plan: # anal SCC, admitted for chemo - plan mitomycin, then 4 days of 5-FU - likely complete Sunday am; could be discharged after - XRT daily - ok'd for him to take wheelchair - PICC - would remove on discharge # etOH abuse - no evidence of w/d - vodka daily, no plans for cessation - ativan prn - thiamine # behavioral issues - very resistant to following hospital protocols; makes his treatment difficult; had initially signed out AMA, then returned intoxicated - appreciate Qiana Saavedra's note # tobacco use - nicotine prn # htn - losartan, terazosin, start low dose norvasc with elevated BPs here # neuropathy - gabapentin # chronic pain - baclofen, oxy # hx traumatic ICH 2009 # lovenox Subjective: no new complaints. Objective: Vital Signs Temp Pulse Resp BP Pulse Ox 36.6 C 107 H 16 136/86 H 94 12/02/16 08:00 12/02/16 08:00 12/02/16 08:00 12/02/16 12:38 12/02/16 08:00 Laboratory Results 12/02/16 04:30 12/02/16 04:30 12/01/16 12/02/16 12/03/16 05:59 05:59 05:59 Intake Total 1791 3001 Output Total 4 Balance 1791 2997 PT 13.3 SEC (12.0-15.0) 11/27/16 20:30 INR 1.02 (0.83-1.16) 11/27/16 20:30 - Physical Exam Constitutional: no apparent distress, appears nourished, not in pain Cardiovascular: No edema Respiratory: no respiratory distress Skin: no rashes or abrasions, no fluctuance, no induration Neurologic: AAOx3 Psychiatric: interacting appropriately, No encephalopathic, No anxious, No poor memory ICD10 Worksheet Patient Problems: Problems Problem Status Onset Cellulitis and abscess Acute
[2016-12-02] MEDS: BACLOFEN 10 MG TAB PO SCH (21:10)
[2016-12-02] MEDS: PANTOPRAZOLE SODIUM 40 MG TAB PO SCH (21:10)
[2016-12-02] MEDS: TERAZOSIN HCL 2 MG CAP PO SCH (21:11)
[2016-12-02] MEDS: LIDOCAINE 5% 1 EA PATCH TD SCH (21:12)
[2016-12-02] MEDS: traZODone 100 MG TAB PO SCH (22:06)
[2016-12-03 08:30] VITALS: PULSE 105; RESP 15; TEMP 98.2; O2SAT 94
[2016-12-03] MEDS: traMADol 50 MG TAB PO PRN (08:43)
[2016-12-03] MEDS: BACLOFEN 10 MG TAB PO PRN (08:43)
[2016-12-03] MEDS: VODKA 50 ML BOTTLE PO SCH (08:43)
[2016-12-03] MEDS: THIAMINE HCL 100 MG TAB PO SCH (08:44)
[2016-12-03] MEDS: GABAPENTIN 400 MG CAP PO SCH ×2 (08:44→12:44)
[2016-12-03] MEDS: ENOXAPARIN 40 MG/0.4 ML SYR SC SCH (08:45)
[2016-12-03] MEDS: PATCH REMOVAL 1 EA PATCH TD SCH (08:58)
[2016-12-03] MEDS: FLUTICASONE NASAL 120 SPRAYS/16 GM MDI NS SCH (09:00)
[2016-12-03] MEDS: LOSARTAN POTASSIUM 50 MG TAB PO SCH (12:44)
[2016-12-03] MEDS: oxyCODONE IR 5 MG TAB PO PRN (12:46)
[2016-12-03 12:49] VITALS: BP 130/78
--- NOTE | 2016-12-03 16:16 | ASDISCHSUM ---
Discharge Information Plan Status:Has needs-TBD Medically Cleared to Leave:12/03/2016 Discharge Date:12/03/2016 03:30 PM CM D/C Disposition: ADT D/C Disposition:Home, Routine, Self-Care Projected Discharge Date:12/03/2016 03:30 PM Transportation at D/C:Cab Voucher Discharge Delay Reason: Follow-Up Date:12/03/2016 03:30 PM Discharge Slot: Final Diagnosis: Placement Information Patient Contact Information Contact Name:SONY Relationship:Sister Address: Work Phone: City:[place] Alternate Phone: [facility]/Virtual Web Code:[place] Email: Financial Information Financial Class: Primary Plan Desc:[employer] [place] Primary Plan Number:[id number] Secondary Plan Desc: Secondary Plan Number: Assessment Information [facility] CM Progress Note CM Note CM Note Notes: Patient twice admitted yesterday after deciding to leave shortly after admission. Patient here for chemo and radiation for rectal cancer. Patient to get PICC today. Left message for Qiana Saavedra to see patient to establish a base line of behavior or necessary boundaries. Patient is refusing nicotine patch and also states he plans to continue drinking. Case management will continue to follow. Date Signed: 11/28/2016 10:07 AM Electronically Signed By:NITZA Pedersen [facility] CM Progress Note CM Note CM Note Notes: Requested that Merari Singh meet with patient because he was very concerned that he would not receive assistance with housing after his treatment though he had been told that this would be arranged. Merari spent a considerable amount to time with patient and patient appeared to trust her with some very personal information. He also referred to important people in his life Dora , his sister [phone], Brother Matthew [phone], and friend Joaquin [phone]. He also told Merari he woul be willing to get a nicotin patch while he is here and said he would take the vodka if it is in cranberry juice. Merari plans to continue to touch base with this patient and address needs not anticipated as they arise. Case management will continue to follow. Date Signed: 11/28/2016 06:04 PM Electronically Signed By:NITZA Pedersen [facility] CM Progress Note CM Note CM Note Notes: ULTC-100 started, at front of chart. CM will finish in AM. Paty notified for LT [id number] tylor to be atarted as pt may need SNF placement at me. Date Signed: 11/29/2016 05:02 PM Electronically Signed By:Mary Ann Ortez RN [facility] CM Progress Note CM Note CM Note Notes: Pt currently does not meet criteria for a LTC bed at a nursing facility. Dir James of case mgmt. approved pt staying at the [facility] for two weeks. This plan will be revisited near the end of those two weeks. Reservation for [facility] from 12/03 12/17. Reservation # is [id number]. Pt will also need W/C transport through [facility] set up. This will be covered by Medicaid. [facility] will be contacted tomorrow. Discussed plans with pt who is grateful. Went over rule about no smoking in room with pt. Discussed rule about limiting visitors and taking good care of the room but pt indicated he has no friends so doesnt think it will be an issue. Pt is due to complete his chemo on Sunday so DC tentatively planned for then. Date Signed: 11/30/2016 05:09 PM Electronically Signed By:Elena Marinelli LCSW [facility] CM Progress Note CM Note CM Note Notes: Contacted [facility] today and they contacted [employer] for pt. MOW will start on Tuesday 12/05 so [facility] will drop off food supplies at the Holiday Sunday for pt . Pt signed the respite care agreement which was faxed to [facility] and placed in pt's chart. Transportation for pt's appts at [facility] made through [employer] starting 12/04 through 12/15. Maya Bello will continue transportation arrangements after that. C/M will continue to follow. Date Signed: 12/01/2016 03:27 PM Electronically Signed By:Elena Marinelli LCSW Intervention Information Intervention Type:*Incorrect Registration Date of Service:11/28/2016 10:37 AM Patient Type:Observation Staff Member:TONNY Paulino Susan Hours: Discipline: Severity: Comment:
--- NOTE | 2016-12-03 20:53 | GDS ---
[f rep st] DISCHARGE SUMMARY DISCHARGE DIAGNOSES: 1. Squamous cell carcinoma of the anus, on chemotherapy. 2. Alcohol abuse. 3. Tobacco abuse. 4. Hypertension. 5. Neuropathy. 6. Chronic pain. 7. History of traumatic intracranial hemorrhage. HISTORY: The patient is a 56-year-old male recently diagnosed with a squamous cell carcinoma of the anus. He is homeless. He is being admitted for chemotherapy, which he completed as an inpatient. C ase Management arranged for discharge to a hotel. He will need daily radiation therapy for the next 5 weeks. We did take his PICC line out prior to discharge. The patient does drink alcohol and has no plans for cessation. He was given daily vodka throughout h is hospitalization. He also was frequently caught exiting the floor to smoke cigarettes. There are a lot of behavioral issues and he was seen in consultation with Qiana Saavedra. He prefers to go by [employer]. He is very resistant to following usual hospital protocols. He did have a couple times where he signed out AMA and then returned. By the end of his hospitalization, however, he was quite complian t and working well with his treatment protocol. DISCHARGE MEDICATIONS: Please see computer record for full detailed list. New medication: Amlodipi ne 2.5 mg p.o. daily added to his blood pressure regimen due to elevated blood pressures here. FOLLOWUP: With Dr. Kay for ongoing coordination of malignancy treatment. TIME SPENT: Greater than 30 minutes' time was spent arranging this discharge. Patient was seen and examined by me on day of discharge. /[id number]/MODL
== END 2016-12-03 15:30 | disposition home or self-care (01) | DRG 847 ==
LOC: F1N 17:36 → OBSVTOIN 18:24 → F1N 11-28 20:39
PROVIDERS: ADMIT Hospitalist; ATTEND Internal Medicine
PROC: 3E03305 Introduction of Other Antineoplastic into Peripheral Vein, Percutaneous Approach (ICD-10-PCS; principal; 2016-11-27)
PROC: 02HV33Z Insertion of Infusion Device into Superior Vena Cava, Percutaneous Approach (ICD-10-PCS; 2016-11-28)
DX: Z51.11 Encounter for antineoplastic chemotherapy (principal); C21.0 Malignant neoplasm of anus, unspecified; F10.10 Alcohol abuse, uncomplicated; R74.0 Nonspecific elevation of levels of transaminase and lactic acid dehydrogenase [LDH]; I10 Essential (primary) hypertension; F17.210 Nicotine dependence, cigarettes, uncomplicated; G89.29 Other chronic pain; G62.9 Polyneuropathy, unspecified; G47.00 Insomnia, unspecified; Z87.820 Personal history of traumatic brain injury; Z59.0 Homelessness; Z88.0 Allergy status to penicillin; Z91.19 Patient's noncompliance with other medical treatment and regimen
CPT/HCPCS: 80307; C1751; G0480; J1100; J1650; J2469; J9190; J9280

== ENCOUNTER → 2017-01-01 | Day surgery (SDC) | payer MEDICAID | END | disposition home or self-care (01) | LOC: FIMAGING 07:17 | PROVIDERS: ATTEND Internal Medicine Hematology & Oncology | PROC: 02HV33Z Insertion of Infusion Device into Superior Vena Cava, Percutaneous Approach (ICD-10-PCS; principal; 2017-01-01) | DX: C21.0 Malignant neoplasm of anus, unspecified (principal) | CPT/HCPCS: 36569; 77001; C1751 ==

== ENCOUNTER 2017-03-15 15:40 | Emergency (ER) | payer MEDICAID ==
[2017-03-15 15:57] VITALS: RESP 16
[2017-03-15] MEDS ORDERED: NS 1,000 ML IV ONE ×2 (16:34→16:41)
[2017-03-15] MEDS ORDERED: ONDANSETRON 4 MG/2 ML VIAL IVP ONE (16:34)
--- NOTE | 2017-03-15 16:34 | EDPHY ---
H & P Stated Complaint: 2 days N/V and diarrhea, flu like symptoms. HPI/ROS: HPI CHIEF COMPLAINT: Nausea, vomiting, diarrhea, chills HISTORY OF PRESENT ILLNESS: Patient 56-year-old male, history of squamous cell carcinoma of the anus and recently underwent radiation and chemotherapy, history of alcoholism, additionally hypertension intracranial bleed, presents emergency room nausea vomiting abdominal pain and diarrhea loose watery stools since last night. Multiple episodes of watery diarrhea. No blood. Patient reports chills. And some abdominal discomfort. Denies any chest pain or shortness of breath. Denies recorded fever but does admit to chills and fatigue. Past Medical History: Squamous cell carcinoma of the anus, alcohol abuse, history tobacco use, hypertension ,traumatic intracranial bleed Past Surgical History: No recent surgery Social History: Homeless, denies daily use of alcohol Family History: Noncontributory ROS REVIEW OF SYSTEMS: A comprehensive 10 point review of systems is otherwise negative aside from elements mentioned in the history of present illness. Exam Constitutional appears well nontoxic no acute distress triage nursing summary reviewed, vital signs reviewed, awake/alert. Eyes normal conjunctivae and sclera, EOMI, PERRLA. HENT normal inspection, atraumatic, moist mucus membranes, no epistaxis, neck supple/ no meningismus, no raccoon eyes. Respiratory clear to auscultation bilaterally, normal breath sounds, no respiratory distress, no wheezing. Cardiovascular rate normal, regular rhythm, no murmur, no edema, distal pulses normal. Gastrointestinal mild tender palpation diffusely no rebound, no guarding, normal bowel sounds, no distension, no pulsatile mass. Genitourinary no CVA tenderness. Musculoskeletal no midline vertebral tenderness, full range of motion, no calf swelling, no tenderness of extremities, no meningismus, good pulses, neurovascularly intact. Skin pink, warm, & dry, no rash, skin atraumatic. Neurologic awake, alert and oriented x 3, AAOx3, moves all 4 extremities equally, motor intact, sensory intact, CN II-XII intact, normal cerebellar, normal vision, normal speech. Psychiatric normal mood/affect. Heme/Lymph/Immune no lymphadenopathy. Differential diagnosis includes but is not limited to and in no particular order : Proctitis, colitis, diverticulitis, radiation colitis, acute GI illness, diarrheal illness, infectious diarrhea Bowel obstruction, appendicitis, gallbladder disease, diverticulitis, colitis, enteritis, perforated viscus, gastritis, GERD, esophagitis, urinary tract infection, pyelonephritis, kidney stones Medical Decision Making: Plan for this patient IV establishment with blood draw , IV fluid bolus 2 L normal saline, IV Zofran for nausea CT scan abdomen pelvis with IV contrast for acute abdominal pain. Re-evaluate. Re-evaluation: CT scan abdomen pelvis with IV contrast does not show any acute inflammatory process. 1807: Patient re-evaluate he is feeling better. He has not had any diarrhea here. I asked for stool specimen however patient states that he cannot provide a diarrheal stool specimen He has not had any vomiting here. Vital signs reviewed and are normal. Blood work reviewed. No fever. Most likely has a diarrheal illness. I will touch base with his cancer doctors. I do feel that he can go home he is well-hydrated he is not vomiting he has no fever he has no diarrhea. CT scan does not show inflammatory process. Will prescribe Zofran. Additionally I will request stool studies. Spoke with Dr. Angela with Oncology. Brannon with d/c. [address] Angela. Is okay with the patient going home. Zofran and Lomotil. Follow-up with them. Return precautions discussed with the patient. Source: Patient - Personal History Current Tetanus Diphtheria and Acellular Pertussis (TDAP): Yes Tetanus Vaccine Date: 2011 - Medical/Surgical History Hx Asthma: No Hx Chronic Respiratory Disease: No Hx Diabetes: No Hx Cardiac Disease: No Hx Renal Disease: No Hx Cirrhosis: No Hx Alcoholism: Yes Hx HIV/AIDS: No Hx Splenectomy or Spleen Trauma: No Other PMH: HTN, Neuropathy, Anal Cancer - Social History Smoking Status: Current every day smoker Constitutional: Initial Vital Signs Temperature (C) 37.1 C 03/15/17 15:53 Heart Rate 88 03/15/17 15:53 Respiratory Rate 16 03/15/17 15:53 Blood Pressure 180/107 H 03/15/17 15:53 O2 Sat (%) 97 03/15/17 15:53 O2 Delivery Mode Room Air Allergies/Adverse Reactions: Penicillins Allergy (Intermediate, Verified 12/04/15 23:24) Rash Home Medications: Medication Instructions Recorded Lidocaine 5% [Lidoderm 5% Patch 1 ea TD DAILY 09/15/14 (*)] Terazosin HCl [Hytrin 2 MG (*)] 2 mg PO HS 09/15/14 traMADol [Ultram 50 mg (*)] 50 - 100 mg PO Q8 PRN 09/15/14 traZODone [traZODONE 100MG (*)] 200 mg PO HS 09/15/14 Baclofen [Baclofen 10 mg (*)] 10 mg PO HS 11/27/16 Fluticasone Nasal [Flonase Nasal 2 sprays NASAL DAILY 11/27/16 [place]] Gabapentin [Neurontin 400 MG (*)] 800 mg PO TID 11/27/16 Losartan Potassium [Cozaar 50 mg 50 mg PO DAILY 11/27/16 (*)] Omeprazole [Prilosec 20 mg] 40 mg PO DAILY 11/27/16 oxyCODONE IR [Oxycodone Ir (*)] 5 mg PO BID PRN 11/27/16 amLODIPine BESYLATE [Norvasc 2.5 2.5 mg PO DAILY #30 tab 12/03/16 mg (*)] Ondansetron HCl [Zofran] 4 mg PO Q4-6PRN PRN #10 tablet 03/15/17 Medical Decision Making - Diagnostics Imaging Results: Imaging Impressions Abdomen CT 03/15/17 16:44 Impression: 1. Nothing acute. 2. Cholelithiasis. 3. Atrophic pancreas. 4. Sigmoid diverticulosis. 5. Fatty infiltration of the liver. 6. Circumferential wall thickening of the anal region that probably represents underlying cancer. There is no associated surrounding inflammation to suggest acute infection or inflammation. Findings and recommendations discussed with Luis Clark MD, at 6:00 PM, 03/15. Final report concurs with initial preliminary interpretation. - Data Points Laboratory Results: Laboratory Results 03/15/17 16:50 03/15/17 16:50 03/15/17 03/15/17 03/15/17 16:50 16:50 16:50 WBC RBC Hgb Hct MCV MCH MCHC RDW Plt Count MPV Neut % (Auto) Lymph % (Auto) [place] % (Auto) Eos % (Auto) Baso % (Auto) Nucleat RBC Rel Count Absolute Neuts (auto) Absolute Lymphs (auto) Absolute Monos (auto) Absolute Eos (auto) Absolute Basos (auto) Absolute Nucleated RBC Immature Gran % Immature Gran # PT 13.2 SEC SEC (12.0-15.0) INR 0.98 (0.83-1.16) APTT 25.5 SEC SEC (23.0-38.0) VBG Lactic Acid 1.6 mmol/L mmol/L (0.7-2.1) Sodium 142 mEq/L mEq/L (135-145) Potassium 3.4 mEq/L L mEq/L (3.5-5.2) Chloride 91 mEq/L L mEq/L (97-110) Carbon Dioxide 31 mEq/l mEq/l (22-31) Anion Gap 20 mEq/L H mEq/L (8-16) BUN 21 mg/dL mg/dL (7-23) Creatinine 0.7 mg/dL mg/dL (0.7-1.3) Estimated GFR > 60 Glucose 125 mg/dL H mg/dL (70-100) Calcium 10.5 mg/dL H mg/dL (8.5-10.4) Total Bilirubin 1.6 mg/dL H mg/dL (0.1-1.4) Conjugated Bilirubin 0.6 mg/dL H mg/dL (0.0-0.5) Unconjugated Bilirubin 1.0 mg/dL mg/dL (0.0-1.1) AST 99 IU/L H IU/L (17-59) ALT 82 IU/L H IU/L (21-72) Alkaline Phosphatase 65 IU/L IU/L (38-126) Total Protein 8.2 g/dL g/dL (6.3-8.2) Albumin 4.9 g/dL g/dL (3.5-5.0) Lipase 79 IU/L IU/L (23-300) 03/15/17 16:50 WBC 4.34 10^3/uL 10^3/uL (3.80-9.50) RBC 3.96 10^6/uL L 10^6/uL (4.40-6.38) Hgb 15.6 g/dL g/dL (13.7-17.5) Hct 41.9 % % (40.0-51.0) MCV 105.8 fL H fL (81.5-99.8) MCH 39.4 pg H pg (27.9-34.1) MCHC 37.2 g/dL H g/dL (32.4-36.7) RDW 12.2 % % (11.5-15.2) Plt Count 78 10^3/uL L 10^3/uL (150-400) MPV 10.4 fL fL (8.7-11.7) Neut % (Auto) 71.5 % % (39.3-74.2) Lymph % (Auto) 14.3 % L % (15.0-45.0) [place] % (Auto) 13.8 % H % (4.5-13.0) Eos % (Auto) 0.2 % L % (0.6-7.6) Baso % (Auto) 0.2 % L % (0.3-1.7) Nucleat RBC Rel Count 0.0 % % (0.0-0.2) Absolute Neuts (auto) 3.10 10^3/uL 10^3/uL (1.70-6.50) Absolute Lymphs (auto) 0.62 10^3/uL L 10^3/uL (1.00-3.00) Absolute Monos (auto) 0.60 10^3/uL 10^3/uL (0.30-0.80) Absolute Eos (auto) 0.01 10^3/uL L 10^3/uL (0.03-0.40) Absolute Basos (auto) 0.01 10^3/uL L 10^3/uL (0.02-0.10) Absolute Nucleated RBC 0.00 10^3/uL 10^3/uL (0-0.01) Immature Gran % 0.0 % % (0.0-1.1) Immature Gran # 0.00 10^3/uL 10^3/uL (0.00-0.10) PT INR APTT VBG Lactic Acid Sodium Potassium Chloride Carbon Dioxide Anion Gap BUN Creatinine Estimated GFR Glucose Calcium Total Bilirubin Conjugated Bilirubin Unconjugated Bilirubin AST ALT Alkaline Phosphatase Total Protein Albumin Lipase Medications Given: Discontinued Medications Al Hydroxide/Mg Hydroxide (Maalox Susp) 30 ml PO ONCE ONE Stop: 03/15/17 18:06 Last Admin: 03/15/17 18:27 Dose: 30 ml Hyoscyamine Sulfate (Levsin, Hyomax-Sl) 0.25 mg PO ONCE ONE Stop: 03/15/17 18:06 Last Admin: 03/15/17 18:27 Dose: 0.25 mg Sodium Chloride (Ns) 1,000 mls @ 0 mls/hr IV EDNOW ONE; Wide Open PRN Reason: Protocol Stop: 03/15/17 16:35 Last Admin: 03/15/17 16:54 Dose: 1,000 mls Sodium Chloride (Ns) 1,000 mls @ 0 mls/hr IV ONCE ONE PRN Reason: Wide Open Stop: 03/15/17 16:42 Last Admin: 03/15/17 17:53 Dose: 1,000 mls Lidocaine (Lidocaine 2% Viscous) 15 ml PO ONCE ONE Stop: 03/15/17 18:06 Last Admin: 03/15/17 18:27 Dose: 15 ml Ondansetron HCl (Zofran) 4 mg IVP EDNOW ONE Stop: 03/15/17 16:35 Last Admin: 03/15/17 16:54 Dose: 4 mg Departure - Departure Disposition: Home, Routine, Self-Care Clinical Impression: Nausea vomiting and diarrhea Condition: Good Instructions: Acute Nausea and Vomiting (ED), Acute Diarrhea (ED) Additional Instructions: 1. Follow up with your doctor. 2. Return emergency room if he develops worsening pain fever vomiting diarrhea bloody stool. 3. Zofran as needed for nausea. Referrals: Arianna Velasco [Primary Care Provider] - As per Instructions Prescriptions: Ondansetron HCl [Zofran] 4 mg PO Q4-6PRN PRN #10 tablet PRN Reason: Nausea/Vomiting, Use 1st
[2017-03-15 16:57] LABS: PLATELET COUNT 78 10^3/uL (150-400)
[2017-03-15] MEDS ORDERED: IOPAMIDOL (ISOVUE-300) 100 ML BTL ONE (17:18)
[2017-03-15 17:38] LABS: INR 0.98 (0.83-1.16); PROTIME(PATIENT) 13.2 SEC (12.0-15.0)
[2017-03-15] MEDS ORDERED: HYOSCYAMINE SULFATE 0.125 MG TAB PO ONE (18:05)
[2017-03-15] MEDS ORDERED: LIDOCAINE 2% VISCOUS 15 ML UDCUP PO ONE (18:05)
[2017-03-15] MEDS ORDERED: MAG HYDROX/AL HYDROX/SIMETH 30 ML UDCUP PO ONE (18:05)
[2017-03-15] MEDS ORDERED: ONDANSETRON 4MG PREPACK#2 BTL TAKEHOME ONE ×2 (18:36→19:17)
[2017-03-15] MEDS ORDERED: DIPHENOXYLATE/ATROPINE LOMOTIL 1 TAB PO PRN (18:36)
[2017-03-15 19:22] VITALS: BP 157/72; PULSE 72; TEMP 98.4; O2SAT 98
== END 2017-03-15 19:21 | disposition home or self-care (01) ==
DX: R19.7 Diarrhea, unspecified (principal); R11.2 Nausea with vomiting, unspecified; E86.9 Volume depletion, unspecified; I10 Essential (primary) hypertension; F17.200 Nicotine dependence, unspecified, uncomplicated; Z85.048 Personal history of other malignant neoplasm of rectum, rectosigmoid junction, and anus
CPT/HCPCS: 96374; J2405; Q9967

== ENCOUNTER 2017-06-18 16:31 | Emergency (ER) | payer MEDICAID ==
--- NOTE | 2017-06-18 16:53 | EDPHY ---
H & P Time Seen by Provider: 06/18/17 16:52 HPI/ROS: CHIEF COMPLAINT: Black stool HISTORY OF PRESENT ILLNESS: Patient presents from the clinic with a chief complaint of"I have black pee coming out of my butt"since last Sunday. The patient had last chemotherapy 5 months ago. He has been off all medications for the last 2 weeks including ibuprofen. Does not have a history of ulcer and says that he has not had any oral intake in about a week. He says been having watery black stool for the past week which is severe and worse with any oral intake. Associated with some mild diffuse abdominal cramping but not with dizziness or syncope. REVIEW OF SYSTEMS: Eye: no change in vision ENT: no sore throat Cardiac: no chest pain or syncope Pulmonary: no cough or SOB Abdomen: HPI vomited once last week but none today Musculoskeletal: no back pain Skin: no rash Neuro: no headache Constitutional: no fever : no urinary symptoms A comprehensive 10 point review of systems is otherwise negative aside from elements mentioned in the history of present illness. PAST MEDICAL HISTORY: Includes hypertension, neuropathy, anal cancer. Social history: Tobacco smoker General Appearance: Alert and conversant, cooperative. Eyes: No scleral icterus. ENT, Mouth: Dry mucous membranes Respiratory: Normal respiratory effort, breath sounds equal, lungs are clear to auscultation. Cardiovascular: Regular rate and rhythm. Tachycardic without murmur. Gastrointestinal: Mild tenderness but no rebound or guarding, rectal exam shows slightly dark stool sent for Hemoccult. Neurological: Alert, face symmetric, normal motor and sensory in extremities. Skin: Warm and dry, no rashes. Musculoskeletal: No peripheral edema. Psychiatric: Not agitated. Emergency Department course/MDM: I-STAT and CT, hematocrit, fecal occult blood, IV fluids. 1845; results discussed patient wants to be discharged which I think is reasonable. Does not appear to have GI bleed or acute surgical abdominal process. Mild dehydration is resolving with IV fluids. Patient tells me he wants to leave and go to [employer] and order a sandwich which I think is reasonable. Smoking Status: Current every day smoker Constitutional: Initial Vital Signs Temperature (C) 36.7 C 06/18/17 16:34 Heart Rate 104 H 06/18/17 16:34 Respiratory Rate 18 06/18/17 16:34 Blood Pressure 131/81 H 06/18/17 16:34 O2 Sat (%) 96 06/18/17 16:34 O2 Delivery Mode Room Air Allergies/Adverse Reactions: Penicillins Allergy (Intermediate, Verified 06/18/17 16:33) Rash Home Medications: Medication Instructions Recorded Lidocaine 5% [Lidoderm 5% Patch] 1 ea TD DAILY 09/15/14 Terazosin HCl [Hytrin 2 MG (*)] 2 mg PO HS 09/15/14 traMADol [Ultram 50 mg (*)] 50 - 100 mg PO Q8 PRN 09/15/14 traZODone [traZODONE 100MG (*)] 200 mg PO HS 09/15/14 Baclofen [Baclofen 10 mg (*)] 10 mg PO HS 11/27/16 Fluticasone Nasal [Flonase Nasal 2 sprays NASAL DAILY 11/27/16 [place]] Gabapentin [Neurontin 400 MG (*)] 800 mg PO TID 11/27/16 Losartan Potassium [Cozaar 50 mg 50 mg PO DAILY 11/27/16 (*)] Omeprazole [Prilosec 20 mg] 40 mg PO DAILY 11/27/16 oxyCODONE IR [Oxycodone Ir (*)] 5 mg PO BID PRN 11/27/16 amLODIPine BESYLATE [Norvasc 2.5 2.5 mg PO DAILY #30 tab 12/03/16 mg (*)] Ondansetron HCl [Zofran] 4 mg PO Q4-6PRN PRN #10 tablet 03/15/17 Medical Decision Making - Diagnostics Imaging Results: Imaging Impressions Abdomen CT 06/18/17 17:28 Impression: 1. Chronic or recurrent circumferential rectal wall thickening raises the possibility of proctitis vs stable rectal cancer. 2. Diverticulosis without evidence of diverticulitis. 3. Chronic versus recurrent abdominal mesenteric edema without obvious underlying cause. 4. Cholelithiasis without secondary evidence of cholecystitis. 5. Bladder hypertrophy likely secondary to prostate enlargement. Results called and discussed with ALYCE LUGO at 06/18/2017 18:05 General information for patients regarding this examination can be found at [email or web address]. If you have questions or comments about this report, please contact me at (hospital) or [phone] (cell). Mild rectal thickening, no intra-abdominal mass or bowel obstruction or other reason for abdominal pain per Jagdeep at 6:05 p.m. Imaging: Discussed imaging studies w/ rn call center Radiologist Differential Diagnosis: Differential considered including but not limited to infectious colitis, GI bleed, gastroenteritis, other diarrhea, Clostridium difficile. - Data Points Laboratory Results: Laboratory Results 06/18/17 17:12 06/18/17 17:12 06/18/17 06/18/17 06/18/17 17:27 17:12 17:12 WBC 5.65 10^3/uL 10^3/uL (3.80-9.50) RBC 4.31 10^6/uL L 10^6/uL (4.40-6.38) Hgb 16.3 g/dL g/dL (13.7-17.5) POC Hgb 17.0 gm/dL gm/dL (13.7-17.5) Hct 43.8 % % (40.0-51.0) POC Hct 50 % % (40-51) MCV 101.6 fL H fL (81.5-99.8) MCH 37.8 pg H pg (27.9-34.1) MCHC 37.2 g/dL H g/dL (32.4-36.7) RDW 12.5 % % (11.5-15.2) Plt Count 147 10^3/uL L 10^3/uL (150-400) MPV 9.4 fL fL (8.7-11.7) Neut % (Auto) 66.7 % % (39.3-74.2) Lymph % (Auto) 20.2 % % (15.0-45.0) [place] % (Auto) 11.3 % % (4.5-13.0) Eos % (Auto) 0.7 % % (0.6-7.6) Baso % (Auto) 0.7 % % (0.3-1.7) Nucleat RBC Rel Count 0.0 % % (0.0-0.2) Absolute Neuts (auto) 3.77 10^3/uL 10^3/uL (1.70-6.50) Absolute Lymphs (auto) 1.14 10^3/uL 10^3/uL (1.00-3.00) Absolute Monos (auto) 0.64 10^3/uL 10^3/uL (0.30-0.80) Absolute Eos (auto) 0.04 10^3/uL 10^3/uL (0.03-0.40) Absolute Basos (auto) 0.04 10^3/uL 10^3/uL (0.02-0.10) Absolute Nucleated RBC 0.00 10^3/uL 10^3/uL (0-0.01) Immature Gran % 0.4 % % (0.0-1.1) Immature Gran # 0.02 10^3/uL 10^3/uL (0.00-0.10) POC Sodium 137 mEq/L mEq/L (135-145) Sodium 137 mEq/L mEq/L (135-145) POC Potassium 2.8 mEq/L L mEq/L (3.3-5.0) Potassium 3.3 mEq/L mEq/L (3.3-5.0) POC Chloride 96 mEq/L L mEq/L (97-110) Chloride 95 mEq/L L mEq/L (97-110) Carbon Dioxide 22 mEq/l mEq/l (22-31) Anion Gap 20 mEq/L H mEq/L (8-16) POC BUN 17 mg/dL mg/dL (7-23) BUN 18 mg/dL mg/dL (7-23) Creatinine 0.8 mg/dL mg/dL (0.7-1.3) POC Creatinine 1.0 mg/dL mg/dL (0.7-1.3) Estimated GFR > 60 Glucose 87 mg/dL mg/dL (70-100) POC Glucose 89 mg/dL mg/dL (70-100) Calcium 9.2 mg/dL mg/dL (8.5-10.4) Stool Occult Bld Scrn 06/18/17 17:09 WBC RBC Hgb POC Hgb Hct POC Hct MCV MCH MCHC RDW Plt Count MPV Neut % (Auto) Lymph % (Auto) [place] % (Auto) Eos % (Auto) Baso % (Auto) Nucleat RBC Rel Count Absolute Neuts (auto) Absolute Lymphs (auto) Absolute Monos (auto) Absolute Eos (auto) Absolute Basos (auto) Absolute Nucleated RBC Immature Gran % Immature Gran # POC Sodium Sodium POC Potassium Potassium POC Chloride Chloride Carbon Dioxide Anion Gap POC BUN BUN Creatinine POC Creatinine Estimated GFR Glucose POC Glucose Calcium Stool Occult Bld Scrn NEGATIVE (NEGATIVE) Medications Given: Discontinued Medications Sodium Chloride (Ns) 1,000 mls @ 0 mls/hr IV EDNOW ONE; Wide Open PRN Reason: Protocol Stop: 06/18/17 17:05 Last Admin: 06/18/17 17:12 Dose: 1,000 mls Loperamide HCl ( Imodium) 4 mg PO EDNOW ONE Stop: 06/18/17 19:32 Last Admin: 06/18/17 19:34 Dose: 4 mg Point of Care Test Results: 06/18/17 17:27 POC Sodium 137 POC Potassium 2.8 L POC Chloride 96 L POC BUN 17 POC Creatinine 1.0 POC Glucose 89 Departure - Departure Disposition: Home, Routine, Self-Care Clinical Impression: Diarrhea Qualifiers: Diarrhea type: unspecified type Qualified Code(s): R19.7 - Diarrhea, unspecified Condition: Good Instructions: Acute Diarrhea (ED) Referrals: Arianna Velasco [Primary Care Provider] - As per Instructions
[2017-06-18] MEDS: NS 1,000 ML IV ONE (17:12)
[2017-06-18 17:22] LABS: PLATELET COUNT 147 10^3/uL (150-400)
[2017-06-18] MEDS ORDERED: IOPAMIDOL (ISOVUE-300) 100 ML BTL ONE (17:34)
[2017-06-18 18:57] VITALS: BP 141/92
[2017-06-18] MEDS: LOPERAMIDE HCL 2 MG CAP PO ONE (19:34)
== END 2017-06-18 18:57 | disposition home or self-care (01) ==
DX: R19.7 Diarrhea, unspecified (principal); E86.9 Volume depletion, unspecified; F17.200 Nicotine dependence, unspecified, uncomplicated; I10 Essential (primary) hypertension; Z85.048 Personal history of other malignant neoplasm of rectum, rectosigmoid junction, and anus
CPT/HCPCS: 82947-QW; Q9967

== ENCOUNTER 2017-10-20 17:36 | Emergency (ER) | payer MEDICAID ==
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
[2017-10-20 19:31] VITALS: BP 132/93
== END 2017-10-20 19:31 | disposition home or self-care (01) ==
LOC: EDUNIT#
DX: S00.03XA Contusion of scalp, initial encounter (principal); F17.200 Nicotine dependence, unspecified, uncomplicated; V19.9XXA Pedal cyclist (driver) (passenger) injured in unspecified traffic accident, initial encounter; Y93.55 Activity, bike riding; Y92.9 Unspecified place or not applicable; Y99.9 Unspecified external cause status

== ENCOUNTER 2018-01-23 08:22 | Day surgery (SDC) | payer MEDICAID ==
[2018-01-23] MEDS ORDERED: LR 1,000 ML IV ONE (08:38)
[2018-01-23] MEDS ORDERED: LIDOCAINE 1% 2 ML INJ ID PRN (08:38)
[2018-01-23 09:00] VITALS: BP 190/121
[2018-01-23 09:35] LABS: INR 0.94 (0.83-1.16); PROTIME(PATIENT) 12.8 SEC (12.0-15.0)
--- NOTE | 2018-01-23 09:47 | PDANEPAE ---
ANE Past Medical History - Cardiovascular History Hx Hypertension: Yes Hx Arrhythmias: No Hx Chest Pain: No Hx Coronary Artery / Peripheral Vascular Disease: No Hx CHF / Valvular Disease: No Hx Palpitations: No - Pulmonary History Hx COPD: No Hx Asthma/Reactive Airway Disease: No Hx Recent Upper Respiratory Infection: No Hx Oxygen in Use at Home: No Hx Sleep Apnea: No Sleep Apnea Screening Result - Last Documented: Positive - Neurologic History Hx Cerebrovascular Accident: No Hx Seizures: No Hx Dementia: No - Endocrine History Hx Diabetes: No Hypothyroid: No Hyperthyroid: No Obesity: no - Renal History Hx Renal Disorders: No - Liver History Hx Hepatic Disorders: Yes Hepatic History Comment: ENLARGED LIVER - Neurological & Psychiatric Hx Hx Neurological and Psychiatric Disorders: No Neurological / Psychiatric History Comment: TREMOR - Cancer History Hx Cancer: No Cancer History Comment: ANAL CA JAN 2017 - Congenital Disorder History Hx Congenital Disorders: No - GI History Hx Gastrointestinal Disorders: Yes Gastrointestinal History Comment: food gets stuck in throat, has to throw it , medications get stuck - Other Health History Other Health History: HOARSE. SINUS DRAINAGE/CONGESTION - Chronic Pain History Chronic Pain: Yes - Surgical History Prior Surgeries: nylon ligaments right shoulder ANE Review of Systems Review of Systems: - Exercise capacity METS (RN): 4 METS ANE Patient History - Allergies Allergies/Adverse Reactions: Penicillins Allergy (Intermediate, Verified 06/18/17 16:33) Rash - Home Medications Home Medications: Lidocaine 5% [Lidoderm 5% Patch] 1 ea TD DAILY 09/15/14 [Last Taken 11/27/16] Terazosin HCl [Hytrin 2 MG (*)] 2 mg PO HS 09/15/14 [Last Taken 11/26/16] traMADol [Ultram 50 mg (*)] 50 - 100 mg PO Q8 PRN 09/15/14 [Last Taken Unknown] traZODone [traZODONE 100MG (*)] 200 mg PO HS 09/15/14 [Last Taken 11/26/16] Baclofen [Baclofen 10 mg (*)] 10 mg PO HS 11/27/16 [Last Taken 11/26/16] Fluticasone Nasal [Flonase Nasal [place]] 2 sprays NASAL DAILY 11/27/16 [Last Taken 11/27/16] Gabapentin [Neurontin 400 MG (*)] 800 mg PO TID 11/27/16 [Last Taken 11/27/16] Losartan Potassium [Cozaar 50 mg (*)] 50 mg PO DAILY 11/27/16 [Last Taken ] Omeprazole [Prilosec 20 mg] 40 mg PO DAILY 11/27/16 [Last Taken 11/27/16] oxyCODONE IR [Oxycodone Ir (*)] 5 mg PO BID PRN 11/27/16 [Last Taken Unknown] - NPO status NPO Status: no food or drink >8 hours NPO Since - Liquids (Date): 01/22/18 NPO Since - Liquids (Time): 20:00 NPO Since - Solids (Date): 01/22/18 NPO Since - Solids (Time): 20:00 - Smoking Hx Smoking Status: Current every day smoker - Family Anes Hx Family Hx Anesthesia Complications: no ANE Labs/Vital Signs - Vital Signs Vital Signs: reviewed preoperatively; see RN documention for details Blood Pressure: 190/121 Heart Rate: 84 Respiratory Rate: 11 O2 Sat (%): 93 Height: 177.8 cm Weight: 77.111 kg ANE Physical Exam - ASA Status ASA Status: III
== END 2018-01-23 09:30 | disposition home or self-care (01) ==
LOC: FSGY 08:22
PROVIDERS: ATTEND Internal Medicine Gastroenterology
DX: C44.520 Squamous cell carcinoma of anal skin (principal); Z53.09 Procedure and treatment not carried out because of other contraindication

== ENCOUNTER 2018-03-12 12:24 | Emergency (ER) | payer MEDICAID ==
[2018-03-12] MEDS ORDERED: NS 1,000 ML IV ONE ×3 (12:38→15:46)
--- NOTE | 2018-03-12 12:57 | ASMTCMCOM ---
CM Note CM Note Notes: PT in FED for back spasms. Per attending RN, pt reported daily ETOH use with current intoxication and stated that he was rude but manageable Pt has DX of metastatic squamous cell carcinoma and HX of numerous falls and injuries with pain. DC plans TBD CM to follow. Date Signed: 03/12/2018 12:56 PM Electronically Signed By:Kiah Bolton LCSW
[2018-03-12 13:37] LABS: PLATELET COUNT 156 10^3/uL (150-400)
[2018-03-12 13:46] LABS: INR 0.91 (0.83-1.16); PROTIME(PATIENT) 12.5 SEC (12.0-15.0)
--- NOTE | 2018-03-12 14:05 | EDPHY ---
General Time Seen by Provider: 03/12/18 12:26 Narrative: CLINICAL IMPRESSION: Resolved back spasms ASSESSMENT/PLAN: 57-year-old alcoholic male well known to our emergency department who presents to the emergency department by ambulance today with complaints of back spasms. On initial evaluation, patient was significantly lethargic and frequently falling asleep during questioning. He appears in no acute distress. He is intoxicated. He has a history of anal cancer and is scheduled for repeat colonoscopy next week. He has no reproducible back pain on initial and follow- up examinations. He did reportedly have an unwitnessed fall yesterday and does have a right eye contusion. CT scan of the head and C-spine are negative for acute fracture and intracranial hemorrhage. He has no evidence of globe injury or hyphema. Abdomen is soft with no focal peritoneal findings, no chest wall tenderness or rib pain. Full range of motion of all extremities. Labs show a renal insufficiency that apparently is "high" for the patient according to his primary care provider who came to the emergency department to speak with me. Patient has chronic transaminitis. She reviewed patient's labs and stated that his platelet count is actually improved from prior that his hemoglobin and hematocrit appear stable and his leukopenia is essentially unchanged. Patient refused rectal exam, despite conflicting reports of rectal bleeding, he states he has not had any. He is most notably upset that he received fentanyl from EMS crew and is repetitively asking for a sandwich. Patient's PCP convinced him to have a 2nd L of IV fluid which he refused from me. I see no indication for emergent admission at this point. I explained this to patient's PCP. He was recently approved for housing and she will continue to work towards this with him. I encouraged follow-up with primary care this week. Warning signs return to ED outlined discharge. DIFFERENTIAL DX: Differential includes but not limited to alcohol intoxication, electrolyte imbalance, transaminitis, infection, co ingestion, intracranial hemorrhage, facial trauma ED PROCEDURES: See lab and/or imaging results below ED COURSE: 2:[address] scans discussed with Dr. Gannon. Patient has old facial fractures but no acute intracranial or C-spine fracture. 2:15 p.m.: Patient reassessed, ambulated to the restroom without difficulty to provide urine sample. CT scan results discussed. I explained to the patient that his primary care was concerned about complaints of rectal bleeding although patient tells me he has not had that for "many months" patient is refusing a rectal exam. He states he has a CT scan, endoscopy and colonoscopy scheduled next week but is very upset that this is on Arora's Day. He was provided snacks but upset that he is not receiving a sandwich. I offered additional IV fluids for an elevated creatinine of 1.8 but patient is refusing this. He states he would like to go for a walk outside. I told him if he goes outside he cannot come back in without re registering. Patient then states I do not want to be discharged I just want a sandwich. 3:30 p.m.. Arianna Velasco with [facility] arrives in the ED. She is patient' s primary care provider. I explained patient's entire workup with her. I explained the patient refused a rectal exam. She has convince the patient to receive a 2nd L of IV fluid which is ordered. I do not see any indication for emergent admission at this time. Patient was apparently recently accepted for housing. CHIEF COMPLAINT: "Back spasms" HPI: 57-year-old male presents to the emergency department by EMS with complaints of back spasms. Patient is a very poor historian at this point, very sleepy and frequently falling asleep during my questions. He prefers to go by "bad man ". He reports he fell yesterday and "face planted". He is regular alcoholic, well known to our emergency department. He has no complaints of chest pain, shortness of breath, abdominal pain, nausea or vomiting. Apparently his primary care provider called him and became concerned that he may have been vomiting and called the ambulance to pick him up. Patient has a history of anal cancer, treated last year and has an upcoming colonoscopy. He denies rectal bleeding to me and is refusing rectal exam. He denies headache, dizziness and vertigo. PAST MEDICAL HISTORY: Alcoholic, history of anal cancer, hypertension See nurse/triage notes for additional history if applicable Pertinent Past Surgical History: None reported Family History: Unable to obtain Social History: Alcoholic, lives in storage unit, prefers to go by bad man REVIEW OF SYSTEMS: All other systems negative Constitutional: No fever, no chills, appetite change. Eyes: No discharge, vision change ENT: No sore throat, congestion, ear pain. Cardiovascular: No chest pain, no palpitations. Respiratory: No cough, no shortness of breath. Gastrointestinal: No abdominal pain, no vomiting, diarrhea. Genitourinary: No hematuria, dysuria, flank pain, pelvic pain Musculoskeletal: No back pain, joint swelling, joint pain, myalgias. Skin: No rashes, color change. Neurological: No headache, dizziness, weakness. PHYSICAL EXAM: General Appearance: Alert, smells of alcohol, disheveled, very sleepy, frequently falling asleep during questioning, hypotensive, remainder of vital signs stable. HEENT: Right orbital contusion, TMs are clear bilaterally no perforation or FB, no injection, no evidence of serous or mucopurulent otitis. No hemotympanum or Wei sign Oropharynx clear is no erythema or exudates, no tonsillar hypertrophy or asymmetry. Dentition without abnormality. No intraoral laceration Eyes: PERRLA, no acute vision change, nystagmus, swelling, discharge, pain or photosensitivity. Conjunctiva pink, no pallor or injection. No evidence of globe injury or hyphema Neck: Supple, nontender, no lymphadenopathy, no midline pain, FROM, no meningismus. Respiratory: There are no retractions, lungs are clear to auscultation. No rib tenderness to palpation Cardiac: Regular rate and rhythm, no murmurs or gallops. Gastrointestinal: Abdomen is soft, nontender, bowel sounds normal, no masses/ hernia, no rigidity, guarding or focal peritoneal findings. Neurological: [ Alert and oriented x 3, sleepy Skin: Warm, dry, no rashes, no nodules on palpation. Musculoskeletal: Extremities are symmetrical, full range of motion, no tenderness, deformity, swelling, or erythema. Psychiatric: Patient is oriented X 3, initially argumentative and then calms and is cooperative MEDICAL DECISION MAKING: Patient was seen independently. Secondary supervising physician at time of evaluation was Dr Capellan . Diagnosis: Back spasms, alcohol intoxication . New, requires workup Summary: See Assessment and Plan for summary of ED visit Clinical lab tests: ordered / reviewed. Independent visualization of images, tracing, or specimens: Yes. Decision to obtain medical records or history from someone other than the patient: Patient's primary care provider Arianna Velasco who came to the ED Review / Summarize previous medical records: Yes Discussed patient with another provider: Dr. Capellan, Patient Progress: Radiology. - Diagnostics Imaging Results: Imaging Impressions Face CT 03/12/18 13:02 Impression: Nothing acute identified. 2. CT of the Facial Bones, 1:17 PM Indication: Trauma. Head injury. ETOH. Technique: 0.625 mm thick collimated slices were obtained through the face from just below the mandible to above the frontal sinuses. The data was reconstructed in the sagittal and coronal planes. Dose reduction techniques were utilized. Findings: No acute facial bone fracture is identified. There is an old healed left lamina propria impaction injury without prolapse of the medial rectus muscle. The globes and intraorbital contents are symmetric and normal. There are old nasal bone and nasal septal fracture deformities, stable since October 20, 2017. The pterygoid plates, zygomatic arches and orbital margins are intact. The paranasal and mastoid sinuses and both middle ears are normally aerated. Impression: Nothing acute identified. Results discussed with Rafy Dodge at 2:00 PM. General information for patients regarding this examination can be found at [email or web address]. If you have questions or comments about this report, please contact me at (hospital) or [phone] (cell). Head CT 03/12/18 13:02 Impression: Nothing acute identified. 2. CT of the Facial Bones, 1:17 PM Indication: Trauma. Head injury. ETOH. Technique: 0.625 mm thick collimated slices were obtained through the face from just below the mandible to above the frontal sinuses. The data was reconstructed in the sagittal and coronal planes. Dose reduction techniques were utilized. Findings: No acute facial bone fracture is identified. There is an old healed left lamina propria impaction injury without prolapse of the medial rectus muscle. The globes and intraorbital contents are symmetric and normal. There are old nasal bone and nasal septal fracture deformities, stable since October 20, 2017. The pterygoid plates, zygomatic arches and orbital margins are intact. The paranasal and mastoid sinuses and both middle ears are normally aerated. Impression: Nothing acute identified. Results discussed with Rafy Dodge at 2:00 PM. General information for patients regarding this examination can be found at [email or web address]. If you have questions or comments about this report, please contact me at (hospital) or [phone] (cell). - History Smoking Status: Current every day smoker - Objective Vital Signs: Initial Vital Signs Temperature (C) 37 C 03/12/18 12:29 Heart Rate 99 03/12/18 12:29 Respiratory Rate 16 03/12/18 12:29 Blood Pressure 85/61 L 03/12/18 12:29 O2 Sat (%) 90 L 03/12/18 12:29 O2 Delivery Mode Room Air Allergies/Adverse Reactions: Penicillins Allergy (Intermediate, Verified 06/18/17 16:33) Rash Home Medications: Medication Instructions Recorded Lidocaine 5% [Lidoderm 5% Patch] 1 ea TD DAILY 09/15/14 Terazosin HCl [Hytrin 2 MG (*)] 2 mg PO HS 09/15/14 traMADol [Ultram 50 mg (*)] 50 - 100 mg PO Q8 PRN 09/15/14 traZODone [traZODONE 100MG (*)] 200 mg PO HS 09/15/14 Baclofen [Baclofen 10 mg (*)] 10 mg PO HS 11/27/16 Fluticasone Nasal [Flonase Nasal 2 sprays NASAL DAILY 11/27/16 [place]] Gabapentin [Neurontin 400 MG (*)] 800 mg PO TID 11/27/16 Losartan Potassium [Cozaar 50 mg 50 mg PO DAILY 11/27/16 (*)] Omeprazole [Prilosec 20 mg] 40 mg PO DAILY 11/27/16 oxyCODONE IR [Oxycodone Ir (*)] 5 mg PO BID PRN 11/27/16 amLODIPine BESYLATE [Norvasc 2.5 2.5 mg PO DAILY #30 tab 12/03/16 mg (*)] Ondansetron HCl [Zofran] 4 mg PO Q4-6PRN PRN #10 tablet 03/15/17 Laboratory Results: Laboratory Results 03/12/18 13:20 03/12/18 13:20 03/12/18 03/12/18 03/12/18 14:00 13:20 13:20 WBC RBC Hgb Hct MCV MCH MCHC RDW Plt Count MPV Neut % (Auto) Lymph % (Auto) [place] % (Auto) Eos % (Auto) Baso % (Auto) Nucleat RBC Rel Count Absolute Neuts (auto) Absolute Lymphs (auto) Absolute Monos (auto) Absolute Eos (auto) Absolute Basos (auto) Absolute Nucleated RBC Immature Gran % Immature Gran # RBC/WBC/PLT Morphology Platelet Estimate PT INR APTT Sodium 134 mEq/L L mEq/L (135-145) Potassium 4.3 mEq/L mEq/L (3.5-5.2) Chloride 101 mEq/L mEq/L (97-110) Carbon Dioxide 19 mEq/l L mEq/l (22-31) Anion Gap 14 mEq/L mEq/L (6-14) BUN 40 mg/dL H mg/dL (7-23) Creatinine 1.8 mg/dL H mg/dL (0.7-1.3) Estimated GFR 39 Glucose 122 mg/dL H mg/dL (70-100) Calcium 8.9 mg/dL mg/dL (8.5-10.4) Total Bilirubin 0.7 mg/dL mg/dL (0.1-1.4) Conjugated Bilirubin 0.6 mg/dL H mg/dL (0.0-0.5) Unconjugated Bilirubin 0.1 mg/dL mg/dL (0.0-1.1) AST 89 IU/L H IU/L (17-59) ALT 83 IU/L H IU/L (21-72) Alkaline Phosphatase 54 IU/L IU/L (38-126) Total Protein 6.9 g/dL g/dL (6.3-8.2) Albumin 4.0 g/dL g/dL (3.5-5.0) Lipase 208 IU/L IU/L (23-300) Urine Color YELLOW Urine Appearance CLEAR Urine pH 5.0 (5.0-7.5) Ur Specific [place] 1.012 (1.002-1.030) Urine Protein NEGATIVE (NEGATIVE) Urine Ketones NEGATIVE (NEGATIVE) Urine Blood NEGATIVE (NEGATIVE) Urine Nitrate NEGATIVE (NEGATIVE) Urine Bilirubin NEGATIVE (NEGATIVE) Urine Urobilinogen 2.0 EU H EU (0.2-1.0) Ur Leukocyte Esterase NEGATIVE (NEGATIVE) Urine RBC 1-3 /hpf /hpf (0-3) Urine WBC 1-3 /hpf /hpf (0-3) Ur Epithelial Cells TRACE /lpf /lpf (NONE-1+) Urine Mucus TRACE /lpf /lpf (NONE-1+) Urine Glucose NEGATIVE (NEGATIVE) Ethyl Alcohol 162 mg/dL H mg/dL (0-10) 03/12/18 03/12/18 13:20 13:20 WBC 3.63 10^3/uL L 10^3/uL (3.80-9.50) RBC 3.37 10^6/uL L 10^6/uL (4.40-6.38) Hgb 12.9 g/dL L g/dL (13.7-17.5) Hct 35.3 % L % (40.0-51.0) MCV 104.7 fL H fL (81.5-99.8) MCH 38.3 pg H pg (27.9-34.1) MCHC 36.5 g/dL g/dL (32.4-36.7) RDW 12.1 % % (11.5-15.2) Plt Count 156 10^3/uL 10^3/uL (150-400) MPV 10.0 fL fL (8.7-11.7) Neut % (Auto) 61.7 % % (39.3-74.2) Lymph % (Auto) 14.6 % L % (15.0-45.0) [place] % (Auto) 22.0 % H % (4.5-13.0) Eos % (Auto) 0.6 % % (0.6-7.6) Baso % (Auto) 0.8 % % (0.3-1.7) Nucleat RBC Rel Count 0.0 % % (0.0-0.2) Absolute Neuts (auto) 2.24 10^3/uL 10^3/uL (1.70-6.50) Absolute Lymphs (auto) 0.53 10^3/uL L 10^3/uL (1.00-3.00) Absolute Monos (auto) 0.80 10^3/uL 10^3/uL (0.30-0.80) Absolute Eos (auto) 0.02 10^3/uL L 10^3/uL (0.03-0.40) Absolute Basos (auto) 0.03 10^3/uL 10^3/uL (0.02-0.10) Absolute Nucleated RBC 0.00 10^3/uL 10^3/uL (0-0.01) Immature Gran % 0.3 % % (0.0-1.1) Immature Gran # 0.01 10^3/uL 10^3/uL (0.00-0.10) RBC/WBC/PLT Morphology TNP Platelet Estimate TNP PT 12.5 SEC SEC (12.0-15.0) INR 0.91 (0.83-1.16) APTT 22.4 SEC L SEC (23.0-38.0) Sodium Potassium Chloride Carbon Dioxide Anion Gap BUN Creatinine Estimated GFR Glucose Calcium Total Bilirubin Conjugated Bilirubin Unconjugated Bilirubin AST ALT Alkaline Phosphatase Total Protein Albumin Lipase Urine Color Urine Appearance Urine pH Ur Specific [place] Urine Protein Urine Ketones Urine Blood Urine Nitrate Urine Bilirubin Urine Urobilinogen Ur Leukocyte Esterase Urine RBC Urine WBC Ur Epithelial Cells Urine Mucus Urine Glucose Ethyl Alcohol Medications Given: Discontinued Medications Sodium Chloride (Ns) 1,000 mls @ 0 mls/hr IV EDNOW ONE; Wide Open PRN Reason: Protocol Stop: 03/12/18 12:39 Last Admin: 03/12/18 12:48 Dose: 1,000 mls Sodium Chloride (Ns) 1,000 mls @ 0 mls/hr IV EDNOW ONE; Wide Open PRN Reason: Protocol Stop: 03/12/18 14:04 Last Admin: 03/12/18 14:51 Dose: Not Given Departure - Departure Disposition: Home, Routine, Self-Care Clinical Impression: Back spasm Condition: Good Instructions: Muscle Spasm (ED) Additional Instructions: DISCHARGE INSTRUCTIONS FROM YOUR DOCTOR Thank you for visiting our emergency department today. Please keep in mind that discharge from the emergency department does not mean that there is nothing wrong - it simply means that we have not identified an emergency condition that requires further evaluation or treatment in the hospital. You should always plan to follow up with primary care for re-evaluation of your condition in the next 2-3 days. If you have been referred to a specialist, please call as soon as possible (today or tomorrow) to schedule your follow up appointment at the appropriate time. EVALUATION IN THE EMERGENCY DEPARTMENT TODAY INCLUDED CT SCAN OF THE HEAD AND FACE SECONDARY TO RECENT TRAUMA, AND LAB EVALUATION. CT SCANS ARE REASSURING WITH NO ACUTE FRACTURE OR BLEEDING IN THE BRAIN. YOU DO APPEAR DEHYDRATED, YOU HAVE ELEVATED KIDNEY FUNCTIONS AND WE RECOMMENDED REPEAT IV FLUIDS WHICH HE DECLINED. PLEASE INCREASE WATER INTAKE. RECTAL EXAM AND EVALUATION FOR RECTAL BLEEDING WAS OFFERED, YOU HAVE DECLINED. PLEASE KEEP APPOINTMENTS NEXT WEEK FOR COLONOSCOPY. CALL [facility] IF HE WISHED RESCHEDULE THIS. RETURN TO THE EMERGENCY DEPARTMENT FOR WORSENING BACK PAIN, ABDOMINAL PAIN, VOMITING, TROUBLE URINATING, RECTAL BLEEDING, FEVER, OR ANY OTHER CONCERN. People present with illnesses and injuries in different ways, and it is always possible that we have missed something. You may always return for re-evaluation if symptoms worsen or if they are not improving or if you develop new/different symptoms. Again, thank you for choosing our emergency department. We hope that you feel better. Referrals: Patient,NotPresent [Unknown] - As per Instructions Arianna Velasco [Primary Care Provider] - 1-2 days without fail
[2018-03-12 17:23] VITALS: BP 102/71
== END 2018-03-12 17:52 | disposition home or self-care (01) ==
LOC: EDUNIT#
DX: M62.830 Muscle spasm of back (principal); E86.9 Volume depletion, unspecified; I10 Essential (primary) hypertension; F10.129 Alcohol abuse with intoxication, unspecified
CPT/HCPCS: G0480

== ENCOUNTER 2018-03-21 09:00 | Observation (INO) | payer MEDICAID ==
[2018-03-21] MEDS ORDERED: ONDANSETRON DISINTEGRATING 4 MG TAB PO PRN (14:19)
[2018-03-21] MEDS ORDERED: ONDANSETRON 4 MG/2 ML VIAL IVP PRN (14:19)
[2018-03-21] MEDS ORDERED: oxyCODONE IR 5 MG TAB PO PRN (14:22)
--- NOTE | 2018-03-21 15:00 | PDGENHP ---
History and Physical - Chief Complaint needs colonoscopy - History of Present Illness 57 yo male with h/o htn, GERD and etoh dependence who lives in a storage unit, presents to hospital for direct admission for planned colonoscopy in am. This was arranged by [facility] as they do not think he can be compliant with outpt prep and procedure. He has a h/o anal cancer, followed by Dr. Louis. He was treated in 2017 with chemo and radiation therapy. He seems intoxicated today and is tangential, not able to provide a dependable history. States he wishes to be called "bat man". History Information - Allergies/Home Medication List Allergies/Adverse Reactions: Penicillins Allergy (Intermediate, Verified 06/18/17 16:33) Rash Home Medications: Lidocaine 5% [Lidoderm 5% Patch] 1 ea TD DAILY PRN 09/15/14 [Last Taken 11/27/16 ] Terazosin HCl [Hytrin 2 MG (*)] 2 mg PO HS 09/15/14 [Last Taken 11/26/16] traZODone [traZODONE 100MG (*)] 200 mg PO HS 09/15/14 [Last Taken 11/26/16] Baclofen [Baclofen 10 mg (*)] 10 mg PO BID 11/27/16 [Last Taken 11/26/16] Fluticasone Nasal [Flonase Nasal [place]] 2 sprays NASAL DAILY 11/27/16 [Last Taken 11/27/16] Gabapentin [Neurontin 400 MG (*)] 800 mg PO TID 11/27/16 [Last Taken 11/27/16] Omeprazole [Prilosec 20 mg] 40 mg PO DAILY 11/27/16 [Last Taken 11/27/16] Herbals/Supplements -Info Only 1 each PO DAILY 03/19/18 [Last Taken Unknown] Lisinopril [Zestril 20 mg (*)] 20 mg PO DAILY 03/19/18 [Last Taken Unknown] Spironolactone [Aldactone 50 MG (RX)] 50 mg PO DAILY 03/19/18 [Last Taken Unknown] Vitamin B Complex [Vitamin B Complex (OTC)] 1 each PO DAILY 03/19/18 [Last Taken Unknown] oxyCODONE IR [Oxycodone Ir (*)] 5 mg PO TID PRN 03/19/18 [Last Taken Unknown] traMADol [Ultram 50 mg (*)] 50 mg PO Q4 03/19/18 [Last Taken Unknown] I have personally reviewed and updated: family history, medical history, social history, surgical history - Past Medical History cancer, hypertension Additional medical history: alcohol abuse, tobacco abuse, hypertension, neuropathy, traumatic ICH 2009, insomnia. anal cancer - Surgical History Additional surgical history: right shoulder surgery 1985. metal plate right finger - Family History Positive for: non-pertinent - Social History Smoking Status: Current every day smoker Additional social history: Homeless, has lived in a storage unit. Drinks pint of [place] a day. Denies w/d or seizure hx. Wishes to be called [facility] Review of Systems Review of Systems: ROS: 10pt was reviewed & negative except for what was stated in HPI & below Physical Exam Physical Exam: Constitutional: no apparent distress Eyes: PERRL Ears, Nose, Mouth, Throat: moist mucous membranes Cardiovascular: regular rate and rhythym Respiratory: no respiratory distress, clear to auscultation Gastrointestinal: normoactive bowel sounds, soft, non-tender abdomen Skin: warm Musculoskeletal: full muscle strength Neurologic: AAOx3 Psychiatric: interacting appropriately Assessment & Plan Assessment: Anal cancer - admission for repeat c-scope in am, unable to do this as outpt with psychosocial issues. \\ -check cbc, bmp, INR -bowel prep tonight -Dr. Valenzuela aware of admission, c-scope in am\\ GERD - cont PPI Hypertension - cont home meds Etoh abuse - he appears intoxicated -check serum etoh level -offered pt alcohol to prevent w/d as he has previously not been interested in detox, but he declines alcohol -CIWA protocol given he does not want etoh Full code Dispo - obs, possible dc in am after c-scope if no complications
[2018-03-21] MEDS ORDERED: LORazepam 2 MG/ML INJ IVP PRN (15:09)
[2018-03-21] MEDS ORDERED: FLUMAZENIL 0.5 MG/5 ML MDV IVP PRN (15:09)
[2018-03-21] MEDS ORDERED: LORazepam 1 MG TAB PO PRN (15:09)
[2018-03-21] MEDS: GABAPENTIN 400 MG CAP PO SCH ×2 (16:40→21:38)
[2018-03-21] MEDS: traMADol 50 MG TAB PO SCH ×3 (16:59→23:24)
[2018-03-21] MEDS ORDERED: PEG 3350/NA SULF,BICARB,CL/KCL (GAVILYTE-G) 4000 ML BTL PO ONE (17:00)
[2018-03-21 17:04] LABS: PLATELET COUNT 155 10^3/uL (150-400)
[2018-03-21 17:13] LABS: INR 0.91 (0.83-1.16); PROTIME(PATIENT) 12.5 SEC (12.0-15.0)
[2018-03-21] MEDS: ACETAMINOPHEN 325 MG TAB PO PRN (19:52)
[2018-03-21] MEDS ORDERED: TERAZOSIN HCL 2 MG CAP PO SCH (21:00)
[2018-03-21] MEDS ORDERED: traZODone 100 MG TAB PO SCH (21:00)
[2018-03-21] MEDS: BACLOFEN 10 MG TAB PO SCH (21:38)
[2018-03-22] MEDS ORDERED: LISINOPRIL 20 MG TAB PO SCH (09:00)
[2018-03-22] MEDS ORDERED: PANTOPRAZOLE SODIUM 40 MG TAB PO SCH (09:00)
[2018-03-22] MEDS ORDERED: THIAMINE HCL 100 MG TAB PO SCH (09:00)
[2018-03-22] MEDS ORDERED: FLUTICASONE NASAL 120 SPRAYS/16 GM MDI EACHNARE SCH (09:00)
[2018-03-22] MEDS ORDERED: MULTIVITAMINS 1 EACH TAB PO SCH (09:00)
[2018-03-22] MEDS ORDERED: SPIRONOLACTONE 50 MG TAB PO SCH (09:00)
[2018-03-22] MEDS: GABAPENTIN 400 MG CAP PO SCH (09:22)
[2018-03-22] MEDS: BACLOFEN 10 MG TAB PO SCH (09:23)
[2018-03-22] MEDS: traMADol 50 MG TAB PO SCH (09:23)
[2018-03-22] MEDS: LIDOCAINE 4%/MENTHOL 1% PATCH TD PRN ×2 (10:35→14:09)
[2018-03-22] MEDS ORDERED: MIDAZOLAM 2 MG/2 ML VIAL IVP ONE (12:04)
[2018-03-22] MEDS ORDERED: PROPOFOL/EMULSION 500 MG/50 ML BOTTLE IV ONE (12:25)
[2018-03-22] MEDS ORDERED: LIDOCAINE 2% 5 ML SDV ONE (12:30)
--- NOTE | 2018-03-22 12:33 | PDGENHP ---
History & Physical Chief Complaint: GERD, Dysphagia, Melena Pertinent Past, Social, Family History: 57 yo male with alcoholism and chronic heartburn. Chronic dysphagia with prior EGD showing mild distal esophageal stricture. History of recent melena and prior anal cancer. SH: Active alcohol and tobacco use. FH: negative for colon cancer. Relevant Physical Exam: NAD. CTA B/L. RRR without m/r/g. GI soft. NABS. NT/ND Cardiorespiratory Assessment: EGD. Colonoscopy. MAC with IV propofol. ASA III
--- NOTE | 2018-03-22 12:37 | PDANEPAE ---
ANE Past Medical History - Cardiovascular History Hx Hypertension: Yes Hx Arrhythmias: No Hx Chest Pain: No Hx Coronary Artery / Peripheral Vascular Disease: No Hx CHF / Valvular Disease: No Hx Palpitations: No - Pulmonary History Hx COPD: No Hx Asthma/Reactive Airway Disease: No Hx Recent Upper Respiratory Infection: No Hx Oxygen in Use at Home: No Hx Sleep Apnea: No Sleep Apnea Screening Result - Last Documented: Negative - Neurologic History Hx Cerebrovascular Accident: No Hx Seizures: No Hx Dementia: No - Endocrine History Hx Diabetes: No - Renal History Hx Renal Disorders: No - Liver History Hx Hepatic Disorders: No Hepatic History Comment: ENLARGED LIVER - Neurological & Psychiatric Hx Hx Neurological and Psychiatric Disorders: No Neurological / Psychiatric History Comment: TREMOR - Cancer History Hx Cancer: No Cancer History Comment: ANAL CA JAN 2017 - Congenital Disorder History Hx Congenital Disorders: No - GI History Hx Gastrointestinal Disorders: Yes Gastrointestinal History Comment: food gets stuck in throat, has to throw it , medications get stuck - Other Health History Other Health History: HEADACHE FROM LAST CONCUSSION. Drinks 1 pint / whiskey - Chronic Pain History Chronic Pain: Yes - Surgical History Prior Surgeries: nylon ligaments right shoulder ANE Review of Systems Review of Systems: - Exercise capacity METS (RN): 4 METS ANE Patient History - Allergies Allergies/Adverse Reactions: Penicillins Allergy (Intermediate, Verified 06/18/17 16:33) Rash diclofenac Allergy (Unknown, Verified 03/22/18 10:04) - Home Medications Home Medications: Lidocaine 5% [Lidoderm 5% Patch] 1 ea TD DAILY PRN 09/15/14 [Last Taken 11/27/16 ] Terazosin HCl [Hytrin 2 MG (*)] 2 mg PO HS 09/15/14 [Last Taken 11/26/16] traZODone [traZODONE 100MG (*)] 200 mg PO HS 09/15/14 [Last Taken 11/26/16] Baclofen [Baclofen 10 mg (*)] 10 mg PO BID 11/27/16 [Last Taken 11/26/16] Fluticasone Nasal [Flonase Nasal [place]] 2 sprays NASAL DAILY 11/27/16 [Last Taken 11/27/16] Gabapentin [Neurontin 400 MG (*)] 800 mg PO TID 11/27/16 [Last Taken 11/27/16] Omeprazole [Prilosec 20 mg] 40 mg PO DAILY 11/27/16 [Last Taken 11/27/16] Herbals/Supplements -Info Only 1 each PO DAILY 03/19/18 [Last Taken Unknown] Lisinopril [Zestril 20 mg (*)] 20 mg PO DAILY 03/19/18 [Last Taken Unknown] Spironolactone [Aldactone 50 MG (RX)] 50 mg PO DAILY 03/19/18 [Last Taken Unknown] Vitamin B Complex [Vitamin B Complex (OTC)] 1 each PO DAILY 03/19/18 [Last Taken Unknown] oxyCODONE IR [Oxycodone Ir (*)] 5 mg PO TID PRN 03/19/18 [Last Taken Unknown] traMADol [Ultram 50 mg (*)] 50 mg PO Q4 03/19/18 [Last Taken Unknown] - Smoking Hx Smoking Status: Current every day smoker - Family Anes Hx Family Hx Anesthesia Complications: no ANE Labs/Vital Signs - Labs Result Diagrams: 03/21/18 16:10 03/22/18 10:30 - Vital Signs Blood Pressure: 142/95 Heart Rate: 94 Respiratory Rate: 18 O2 Sat (%): 91 Height: 171 cm Weight: 74.6 kg ANE Physical Exam - Airway Neck exam: FROM Mallampati Score: Class 3 Mouth exam: poor dentition - Pulmonary Pulmonary: clear to auscultation - Cardiovascular Cardiovascular: regular rate and rhythym - ASA Status ASA Status: III ANE Anesthesia Plan Anesthesia Plan: MAC
[2018-03-22] MEDS ORDERED: fentaNYL 100 MCG/2 ML INJ ONE (12:39)
[2018-03-22] MEDS ORDERED: NALOXONE HCL 0.4 MG/ML INJ IVP PRN (13:02)
[2018-03-22] MEDS ORDERED: LR 500 ML IV PRN (13:02)
[2018-03-22] MEDS ORDERED: ALBUTEROL 3 ML DEYVIAL IH PRN (13:02)
[2018-03-22] MEDS ORDERED: DIAZEPAM 5 MG/ML 1 ML SYR IVP PRN (13:02)
[2018-03-22] MEDS ORDERED: MEPERIDINE 25 MG/0.5 ML AMP IVP PRN (13:02)
[2018-03-22] MEDS ORDERED: fentaNYL 100 MCG/2 ML INJ IVP PRN (13:02)
[2018-03-22] MEDS ORDERED: LABETALOL HCL 5 MG/ML 20 ML MDV IVP PRN (13:02)
[2018-03-22] MEDS ORDERED: ONDANSETRON 4 MG/2 ML VIAL IVP PRN (13:02)
--- NOTE | 2018-03-22 13:12 | GIREPORT ---
[facility] Surgical Services - Endoscopy Department Patient Name: Yinka Burns Procedure Date: 03/22/2018 12:03 PM Patient Type: Inpatient Attending MD/ ER Physician: Mark Anthony Valenzuela MD Procedure: Colonoscopy Indications: Screening for colorectal malignant neoplasm Providers: Mark Anthony Valenzuela MD Medicines: Propofol per Anesthesia Complications: No immediate complications. Description of Procedure: After obtaining informed consent, the scope was passed under direct vis ion. Throughout the procedure, the patient's blood pressure, pulse, and oxyg en saturations were monitored continuously. The Colonoscope with irrigatio n channel was introduced through the anus and advanced to the cecum, identified by appendiceal orifice and ileocecal valve. The colonoscopy was performed without difficulty. The patient tolerated the procedure well. The quality of the bowel preparation was good. The ileocecal valve, appendi ceal orifice, and rectum were photographed. Findings: The perianal and digital rectal examinations were normal. Pertinent negatives include normal sphincter tone and no palpable rectal lesions. A few small-mouthed diverticula were found in the sigmoid colon. The exam was otherwise without abnormality. Estimated Blood Loss: Estimated blood loss: none. Post Op Diagnosis: - Diverticulosis in the sigmoid colon. - The examination was otherwise normal. - No specimens collected. Recommendation: - Repeat colonoscopy in 10 years for screening purposes. - Resume previous diet. - Continue present medications. - Patient has a contact number available for emergencies. The signs and symptoms of potential delayed complications were discussed with the pat ient. Return to normal activities tomorrow. Written discharge instructions we re provided to the patient. - Thank you for allowing me to be involved in the care of your patient. Attending Participation: I personally performed the entire procedure without the assistance of a fellow, resident or surg ical assistant food service manager. Mark Anthony Valenzuela MD Mark Anthony Valenzuela MD 03/22/2018 1:11:52 PM This report has been signed electronicallyDavid MD Bianca Number of Addenda: 0 Note Initiated On: 03/22/2018 12:03 PM Total Procedure Duration Time 0 hours 12 minutes 16 seconds [email or web address]
--- NOTE | 2018-03-22 13:13 | GIREPORT ---
[facility] Surgical Services - Endoscopy Department Patient Name: Yinka Burns Procedure Date: 03/22/2018 12:01 PM Patient Type: Inpatient Attending MD/ ER Physician: Mark Anthony Valenzuela MD Procedure: Upper GI endoscopy Indications: Dysphagia, Heartburn Providers: Mark Anthony Valenzuela MD Medicines: Propofol per Anesthesia Complications: No immediate complications. Description of Procedure: After obtaining informed consent, the endoscope was passed under direct vision. Throughout the procedure, the patient's blood pressure, pulse, and oxygen saturations were monitored continuously. The Endoscope was intro duced through the mouth, and advanced to the second part of duodenum. The [facility] GI endoscopy was accomplished without difficulty. The patient tolerated th e procedure well. Findings: One benign-appearing, intrinsic stenosis was found 37 cm from the incis ors. This stenosis was mildly severe and measured 1.2 cm (inner diameter) x 1 cm (in length). The stenosis was traversed. A guidewire was placed and the scope was withdrawn. Dilation was performed with a Savary dilator with mild resistance at 54 Fr. A small hiatal hernia was present. The examined duodenum was normal. Estimated Blood Loss: Estimated blood loss: none. Post Op Diagnosis: - Benign-appearing esophageal stenosis. Dilated. - Small hiatal hernia. - Normal examined duodenum. - No specimens collected. Recommendation: - Use Prilosec (omeprazole) 20 mg PO daily. - Advance diet as tolerated. - Perform a colonoscopy today. - [facility] patient to [facility] care. - Thank you for allowing me to be involved in the care of your patient. Attending Participation: I personally performed the entire procedure without the assistance of a fellow, resident or surg ical car rental sales assistant. Mark Anthony Valenzuela MD Mark Anthony Valenzuela MD 03/22/2018 1:12:40 PM This report has been signed electronicallyDavid MD Bianca Number of Addenda: 0 Note Initiated On: 03/22/2018 12:01 PM [email or web address]
--- NOTE | 2018-03-22 13:42 | POSTANESTH ---
Post Anesthetic Evaluation Cardiovascular Status: Normal, Stable Respiratory Status: Normal, Stable Level of Consciousness/Mental Status: Can Participate in Eval Pain Control: Adequate, Prn Tx Ordered Nausea/Vomiting Control: Adequate, Prn Tx Ordered Complications Possibly Related to Anesthesia: None Noted
[2018-03-22] MEDS: ACETAMINOPHEN 325 MG TAB PO PRN (13:59)
[2018-03-22 15:00] VITALS: BP 136/97
--- NOTE | 2018-03-22 15:08 | PDDCSUM ---
Discharge Summary Discharge Summary: Discharge diagnosis Alcohol abuse GERD Hypertension History of anal cancer Patient is a 57-year-old male with past medical history hypertension, GERD, alcohol dependence, anal cancer, who lives in a storage unit presented to the hospital for direct admission for planned colonoscopy in the morning. If colonoscopy was arranged by [facility] as there was concern that the patient would be noncompliant with his colonoscopy prep. On admission the patient was obviously intoxicated, his blood alcohol level was 275. He was given a GI prep which she only partially completed. He was taken for an upper endoscopy and colonoscopy this morning. Colonoscopy was unremarkable with no abnormal findings. Upper endoscopy was notable for a esophageal stricture at 37 cm from the incisors. The stenosis was mildly severe and measured 1.2 cm by 1 cm. Dilation was performed with a Savary dilator. He had no complications and was able to tolerate a regular diet shortly after his procedure. He was discharged home on his usual medications which included a PPI. Discharge disposition Home in good condition Medications Unchanged
--- NOTE | 2018-03-22 15:37 | ASMTLACE ---
AVNIE Length of stay for Answers: 1 day current admission Acuity / Level of Answers: No Care: Did the patient have an inpatient admission? Comorbidities - select Answers: Any tumor (including all that apply lymphoma or leukemia) Opioid dependence / Chronic pain Other Notes: GERD; HTN # of Emergency department Answers: 1-2 visits in the last 6 months Social determinants Answers: History of substance abuse (ETOH, street drugs, prescription drugs, etc.) Score: 12 Date Signed: 03/22/2018 03:37 PM Electronically Signed By:Allie Ny RN
== END 2018-03-22 16:31 | disposition home or self-care (01) ==
LOC: F1N 14:31 → INTOOBSV 14:31
PROVIDERS: ADMIT Hospitalist; ATTEND Hospitalist
DX: K22.2 Esophageal obstruction (principal); K21.9 Gastro-esophageal reflux disease without esophagitis; I10 Essential (primary) hypertension; F10.20 Alcohol dependence, uncomplicated; C21.0 Malignant neoplasm of anus, unspecified; Z59.0 Homelessness
CPT/HCPCS: 43245; 45378; G0378; G0480; J2250; J2704; J3010